=== PATIENT | male | born 1940 | race Caucasian/White ===

== ENCOUNTER 2019-11-07 01:31 | Emergency (ER) | payer OTHER, MEDICARE ==
[~2019-11-07] VITALS: Ht 175.3 cm; Wt 108.9 kg
[~2019-11-07 01:31] MED LIST: ACET325 PO; AMOCLA875 PO; ANACIN; BENZ100A PO; CHOLESTEROL MED; CLIN150 PO; ERGO400 PO; FURO20 PO; FURO40 PO; HYDACE5 PO; HYDR1TAB94 PO; K-Dur20 MEQ PO; LOVENOX; MITIGARE0.6 MG PO; OMEP40CA12 PO; POTA20PAC PO; POTCHL10ER PO; POTCHL20ER PO; PRAV20 PO; TRIHYD PO; VITAMIN D5000 UNIT PO; WARF10; WARF10 PO; WARF5 PO; WARF7.5 PO
[2019-11-18] MEDS ORDERED: WARF5 PO (22:40)
[2019-11-18] MEDS ORDERED: Micro-K10 MEQ PO (22:40)
[2019-11-18] MEDS ORDERED: FURO40 PO (22:41)
[2019-11-25] MEDS ORDERED: AMOCLA875 PO (11:54)
[2019-11-25] MEDS ORDERED: ENOX80I SC (11:54)
[2019-11-25] MEDS ORDERED: PROBIOTIC1 EA10 PO (11:54)
== END 2019-11-07 02:49 | disposition home or self-care (01) ==
LOC: ER 01:31
DX: S50.01XA Contusion of right elbow, initial encounter (principal); F17.220 Nicotine dependence, chewing tobacco, uncomplicated; Z79.01 Long term (current) use of anticoagulants; Z79.899 Other long term (current) drug therapy; X58.XXXA Exposure to other specified factors, initial encounter
CPT/HCPCS: 73080; 99284-25

== ENCOUNTER 2021-01-07 14:41 | Emergency (ER) | payer MEDICARE ==
[~2021-01-07 14:41] MED LIST changes: +ENOX80I SC; +FURO80 PO; +KLOR-CON M1010 MEQ PO; +Micro-K10 MEQ PO; +PROBIOTIC1 EA10 PO; +TAMS.4ER PO
== END 2021-01-07 14:55 | disposition left against medical advice (07) ==
LOC: ER 14:41
DX: Z53.21 Procedure and treatment not carried out due to patient leaving prior to being seen by health care provider (principal)

== ENCOUNTER 2022-03-06 14:36 | Emergency (ER) | payer MEDICARE ==
[~2022-03-06] VITALS: Ht 175.3 cm; Wt 106.6 kg
[2022-03-06 15:53] LABS: BASOPHILS ABSOLUTE AUTO 0.03 K/mm3 (0.00-0.23); BASOPHILS PERCENT AUTO 1 % (0-2); EOSINOPHILS PERCENT AUTO 2 % (0-6); Hematocrit 35.4 % (37.0-53.0); Hemoglobin 11.3 g/dL (13.5-17.5); IMMATURE GRAN ABSOLUTE AUTO 0.02 K/mm3 (0.00-0.10); IMMATURE GRAN PERCENT AUTO 0 % (0-1); LYMPHOCYTES PERCENT AUTO 25 % (21-46); MONOCYTES ABSOLUTE AUTO 0.43 K/mm3 (0.16-1.47); MONOCYTES PERCENT AUTO 8 % (4-13); Mean Corpuscular HGB 28.4 pg (26.0-34.0); Mean Corpuscular HGB Conc 31.9 g/dL (31.5-36.5); Mean Corpuscular Volume 89 fL (80-100); Mean Platelet Volume 9.2 fL (9.1-12.4); NEUTROPHILS ABSOLUTE AUTO 3.64 K/mm3 (1.96-9.15); NEUTROPHILS PERCENT AUTO 65 % (41-73); Platelet Count 353 K/mm3 (150-400); RDW Coefficient Variation 15.3 % (11.7-14.2); RDW Standard Deviation 50.2 fL (35.1-46.3); Red Blood Cell Count 3.98 M/mm3 (4.30-5.90); White Blood Cell Count 5.62 K/mm3 (4.00-11.30)
[2022-03-06 16:25] LABS: Albumin, Blood 2.3 g/dL (3.4-5.0); Albumin/Globulin Ratio 0.4 (0.8-1.8); Bilirubin, Total 0.4 mg/dL (0.1-1.0); Bun/Creatinine Ratio 18.7 (12.0-20.0); Calcium, Blood 9.3 mg/dL (8.5-10.1); Creatinine, Blood 0.8 mg/dL (0.60-1.20); Globulin, Blood 6.3 g/dL (2.2-4.0); Potassium, Blood 3.6 mmol/L (3.5-5.5); Total Protein, Blood 8.6 g/dL (6.4-8.2)
[2022-03-06 18:32] LABS: International Normalized Ratio 2.42
[2022-03-06] MEDS ORDERED: CEFD300 PO (20:27)
== END 2022-03-06 20:52 | disposition home or self-care (01) ==
LOC: ER 14:36
PROVIDERS: Emergency Medicine; Physician Assistant
DX: L03.115 Cellulitis of right lower limb (principal); I87.8 Other specified disorders of veins; Z79.899 Other long term (current) drug therapy; Z79.01 Long term (current) use of anticoagulants
CPT/HCPCS: 36415; 73701; 80053; 83880; 85025; 85610; 87070; 87075; 87147; 87205; 93005; 93010; Q9967

== ENCOUNTER 2022-03-19 09:09 | Inpatient (IN) | payer MEDICARE ==
[~2022-03-19] VITALS: Ht 172.7 cm; Wt 100.0 kg
[~2022-03-19 09:09] MED LIST changes: +CEFD300 PO; -FURO80 PO
[2022-03-19 10:01] LABS: BASOPHILS ABSOLUTE AUTO 0.04 K/mm3 (0.00-0.23); BASOPHILS PERCENT AUTO 1 % (0-2); EOSINOPHILS ABSOLUTE AUTO 0.05 K/mm3 (0.00-0.68); EOSINOPHILS PERCENT AUTO 1 % (0-6); Hematocrit 28.9 % (37.0-53.0); Hemoglobin 9.3 g/dL (13.5-17.5); IMMATURE GRAN ABSOLUTE AUTO 0.03 K/mm3 (0.00-0.10); IMMATURE GRAN PERCENT AUTO 1 % (0-1); LYMPHOCYTES ABSOLUTE AUTO 1.55 K/mm3 (0.84-5.20); LYMPHOCYTES PERCENT AUTO 25 % (21-46); MONOCYTES ABSOLUTE AUTO 0.57 K/mm3 (0.16-1.47); MONOCYTES PERCENT AUTO 9 % (4-13); Mean Corpuscular HGB 28.2 pg (26.0-34.0); Mean Corpuscular HGB Conc 32.2 g/dL (31.5-36.5); Mean Corpuscular Volume 88 fL (80-100); Mean Platelet Volume 9.8 fL (9.1-12.4); NEUTROPHILS ABSOLUTE AUTO 3.91 K/mm3 (1.96-9.15); NEUTROPHILS PERCENT AUTO 64 % (41-73); Platelet Count 355 K/mm3 (150-400); RDW Coefficient Variation 15.1 % (11.7-14.2); RDW Standard Deviation 48.7 fL (35.1-46.3); White Blood Cell Count 6.15 K/mm3 (4.00-11.30)
[2022-03-19 10:17] LABS: Magnesium, Blood 1.6 mg/dL (1.6-2.4)
[2022-03-19 11:28] LABS: Albumin, Blood 1.6 g/dL (3.4-5.0); Albumin/Globulin Ratio 0.2 (0.8-1.8); Bilirubin, Total 0.9 mg/dL (0.1-1.0); Bun/Creatinine Ratio 19.8 (12.0-20.0); Calcium, Blood 8.7 mg/dL (8.5-10.1); Creatinine, Blood 0.81 mg/dL (0.60-1.20); Globulin, Blood 6.8 g/dL (2.2-4.0); Potassium, Blood 3.2 mmol/L (3.5-5.5); Total Protein, Blood 8.4 g/dL (6.4-8.2)
[2022-03-19 12:11] LABS: Prothrombin Time Results 42.8 Sec (9.7-11.5)
[2022-03-19 12:14] LABS: International Normalized Ratio 4.5
--- NOTE | 2022-03-19 18:45 | NUR ---
END OF SHIFT SUMMARY: PATIENT ADMITTED THIS AFTERNOON. PATIENT REPORTS THAT HE IS UNABLE TO WALK AT THIS TIME RELATED TO HIS RLE. PATIENT DENIES PAIN, HOWEVER HE YELLS OUT WITH MOVEMENT OF HIS RIGHT LEG. PATIENT REPORTS THAT HE DOESN'T LIKE TO TAKE PAIN MEDICATIONS AND REFUSED ANY INTERVENTIONS FOR PAIN. PATIENT ARRIVED TO THE UNIT IN CLOTHING SOILED FROM THE WOUND AND LACK OF WASHING. WOUND PICTURES ARE IN THE CHARGE. DR. FONG ROUNDED ON THE PATIENT AND GAVE NEW ORDERS. WOUND DRESSED PER ORDERS ( ALLOWED FOR RN) UNTIL HOTEL OR MOTEL RECEPTIONIST CAN COMPLETE THE ASSESSMENT AND DRESSING TOMORROW. PATIENT HAS A MODERATE APPETITE. PATIENT REPORTS THAT HE HAS HAD A LACK OF APPETITE AND HAS BEEN LOSING WEIGHT A RESULT OF THAT.
[2022-03-20 04:40] LABS: Hematocrit 25.5 % (37.0-53.0); Mean Corpuscular HGB 27.9 pg (26.0-34.0); Mean Corpuscular HGB Conc 31.4 g/dL (31.5-36.5); Mean Corpuscular Volume 89 fL (80-100); Mean Platelet Volume 9.4 fL (9.1-12.4); Platelet Count 323 K/mm3 (150-400); RDW Standard Deviation 48.4 fL (35.1-46.3); Red Blood Cell Count 2.87 M/mm3 (4.30-5.90); White Blood Cell Count 6.65 K/mm3 (4.00-11.30)
[2022-03-20 04:57] LABS: International Normalized Ratio 3.12; Prothrombin Time Results 30.4 Sec (9.7-11.5)
[2022-03-20 04:58] LABS: Bun/Creatinine Ratio 18.4 (12.0-20.0); Calcium, Blood 8.1 mg/dL (8.5-10.1); Creatinine, Blood 0.81 mg/dL (0.60-1.20); Potassium, Blood 3.3 mmol/L (3.5-5.5)
--- NOTE | 2022-03-20 05:01 | NUR ---
PT A&OX 4, IV ABX INFUSED T/O NIGHT WITH NS @125, PT DENIED PAIN IN THE RIGHT LEG AT THIS TIME, PT WOUND TO RIGHT FOOT WRAPPED WITH KERLIX- WOUND CONSULT ORDERED- MRI ORDERED TO DETERMINE IF PT NEEDS AMPUTATION
[2022-03-20 16:20] LABS: Percent Saturation 12.8 % (20.0-50.0)
--- NOTE | 2022-03-20 16:28 | NUR ---
DAYSHIFT SUMMARY No acute changes to patient status this shift. Patient resting comfortably in bed, uses urinal in bed & calls appropriately. Dressing applied to right foot, dressing is CDI. Patient had MRI done today. Vitals stable. Will continue plan of care.
[2022-03-20 22:55] LABS: Vancomycin, Random 16.5 ug/mL
--- NOTE | 2022-03-21 05:54 | NUR ---
Shift Summary PT AOx4, currently on bedrest due to the state of his right foot. 4+ edema on R and L LE, significantly worse on R side. X-ray was done tonight, awaiting results. Spoke to Dr. Stroud who ordered NPO status, vancomyacin to be restarted, and Zosyn to be restarted as they were before. Plan is to have ortho consult this AM and possibly perform BKA today. PT is agreeable to this possibility. No C/O of pain or nausea, VSS, no acute events, pleasant and cooperative with care.
[2022-03-21 08:48] LABS: BASOPHILS ABSOLUTE AUTO 0.03 K/mm3 (0.00-0.23); BASOPHILS PERCENT AUTO 1 % (0-2); EOSINOPHILS ABSOLUTE AUTO 0.09 K/mm3 (0.00-0.68); EOSINOPHILS PERCENT AUTO 1 % (0-6); Hematocrit 26.9 % (37.0-53.0); Hemoglobin 8.2 g/dL (13.5-17.5); IMMATURE GRAN ABSOLUTE AUTO 0.04 K/mm3 (0.00-0.10); IMMATURE GRAN PERCENT AUTO 1 % (0-1); LYMPHOCYTES ABSOLUTE AUTO 1.25 K/mm3 (0.84-5.20); LYMPHOCYTES PERCENT AUTO 19 % (21-46); MONOCYTES ABSOLUTE AUTO 0.54 K/mm3 (0.16-1.47); MONOCYTES PERCENT AUTO 8 % (4-13); Mean Corpuscular HGB 27.3 pg (26.0-34.0); Mean Corpuscular HGB Conc 30.5 g/dL (31.5-36.5); Mean Corpuscular Volume 90 fL (80-100); Mean Platelet Volume 8.8 fL (9.1-12.4); NEUTROPHILS PERCENT AUTO 70 % (41-73); Platelet Count 346 K/mm3 (150-400); RDW Coefficient Variation 15.1 % (11.7-14.2); RDW Standard Deviation 49.1 fL (35.1-46.3); White Blood Cell Count 6.55 K/mm3 (4.00-11.30)
[2022-03-21 09:00] LABS: International Normalized Ratio 1.64; Prothrombin Time Results 16.7 Sec (9.7-11.5)
[2022-03-21 10:29] LABS: Influenza A, PCR NEGATIVE (NEGATIVE); Influenza B, PCR NEGATIVE (NEGATIVE); Resp Syncytial Virus, PCR NEGATIVE (NEGATIVE); SARS-Cov-2 (COVID-19) PCR, MMC NEGATIVE (NEGATIVE)
--- NOTE | 2022-03-21 18:29 | NUR ---
SHIFT SUMMARY: NO ACUTE EVENTS. DENIES PAIN WHILE RLE IS AT REST, BUT CRIES OUT WHEN EXTREMITY IS MOVED AT ALL, RECOVERS QUICKLY. A&O X 4, UNCOOPERATIVE THIS MORNING BUT WAS MORE COOPERATIVE THIS AFTERNOON. LBM 03/19; STATED NORMAL FOR HIM TO GO 4-5 DAYS WITHOUT. DRESSING CHANGED ON R ANKLE PER ORDERS. APPETITE OK. VERBALIZED UNDERSTANDING OF PLAN FOR TOMORROW: NPO AFTER MN, SURGERY FOR R BKA OR AKA. HAD SEVERAL VISITORS TODAY.
[2022-03-22 04:27] LABS: Vancomycin, Trough 11.6 ug/mL (5.0-10.0)
[2022-03-22 05:19] LABS: International Normalized Ratio 1.38; Prothrombin Time Results 14.2 Sec (9.7-11.5)
--- NOTE | 2022-03-22 06:45 | NUR ---
Shift Summary Pt awaiting surgery today, has been NPO since midnight. Rcving NPO ABX and IV NS to minimize infection until surgery. AOx4, irritable when awoken and sometimes yells at staff. Expected BKA or Above KA today. INR was 1.6 yesterday, surgeon wanted 1.4 for surgery, this AM it is 1.38. Pre-op and covid test were done by day nurse yesterday and should be in PT's chart. VSS, pt cooperative with care.
--- NOTE | 2022-03-22 17:26 | NUR ---
SHIFT SUMMARY PT ALERT AND ORIENTED, CALLS APPROPRIATELY. PT DOWN TO OR TODAY FOR R BKA. PT RETURNED TO UNIT WITH DRESSING CDI. PAIN IS CURRENTLY TOLERABLE. IV FLUIDS INFUSING. PT ON RA, SPO2 > 92%. WILL CONTINUE TO MONITOR. CALL LIGHT WITHIN REACH.
[2022-03-22 22:36] LABS: Creatinine, Blood 0.65 mg/dL (0.60-1.20); Vancomycin, Trough 13.4 ug/mL (5.0-10.0)
--- NOTE | 2022-03-23 05:13 | NUR ---
SUMMARY: PATIENT DID WELL OVERNIGHT. VSS. NO ACUTE EVENTS. IV HYDRATION RUNNING. IV ABX GIVEN. PATIENT STATES HIS PAIN IS TOLERABLE, MEDS OFFERED FREQUENTLY PATIENT STATES HE DOES NOT BELIEVE IN TAKING PAIN MEDS. BLE WITH EDEMA NOTED. R BKA SURGICAL DRESSING CLEAN DRY AND INTACT. NO SIGNS OF DRAINAGE OR BLEEDING.
--- NOTE | 2022-03-23 17:15 | NUR ---
NO ACUTE CHANGES DURING SHIFT. PT ALERT AND ORIENTED, CALLS APPROPRIATELY. PT FLUIDS D/C'D, SALINE LOCKED. CONTINUES IV ABX. PT C/O MINOR PAIN TO RBKA, BUT REQUESTS NO PAIN MEDS AT THIS POINT. DRESSING CDI. WILL CONTINUE TO MONITOR. CALL LIGHT WITHIN REACH.
--- NOTE | 2022-03-24 05:31 | NUR ---
SUMMARY: PATIENT WAS NAUSEOUS THROUGHOUT THE NIGHT AND HAD A FEW EPISODES OF EMESIS. IV ZOFRAN GIVEN. IV ABX GIVEN. PATIENT REFUSING PAIN MEDICATIONS. PATIENT R BKA SURGERY SITE DRESSING IN TACT. NO SIGNS OF BLEEDING. PATIENT ALERT AND ORIENTED X4. VSS. JUST STATES HE FEELS SICK TO HIS STOMACH. BED BATH GIVEN THIS MORNING AND LINENS CHANGED. PATIENT AGREED TO TAKE TYLENOL THIS AM. CRUSHED PILLS IN APPLESAUCE PATIENT STATED HIS STOMACH WAS UPSET.
--- NOTE | 2022-03-24 06:34 | NUR ---
AT 0628 THIS MORNING PATIENT REPORTED HE HAS CHEST PAIN. PATIENT HAS HAD A FEW EPISODES OF EMISIS OVERNIGHT. NOTIFIED DR. HINDS. HE STATED TO GIVE 30ML OF MAALOX THEN REASSESS AND NOTIFY HIM IF CHEST PAIN PERSISTS AND HE WILL GIVE NEW ORDERS.
[2022-03-24 10:23] LABS: Vancomycin, Trough 17.6 ug/mL (5.0-10.0)
--- NOTE | 2022-03-24 17:14 | NUR ---
SHIFT SUMMARY; CAME TO ROOM AND CHANGED DRESSING ON RIGHT LEG AKA. NO DRAINAGE NOTE. AREA IS CLEAN DRY AND INTACT. NO REDNESS OR SWELLING. BYRON TOLERATED DRESSING CHANGE WELL. BYRON DID WORK WITH OT TODAY AND SHE WOULD LIKE PATINT TO SIT ON EDGE OF BED AT DINNER IF AT ALL POSSIBLE. DINING SERVICE WORKER IS WORKING ON PLANS FOR PAITENT AFTER SNF AND IS ABLE TO FIGURE OUT THAT BYRON HAS FRIENDS (TRINH AND HER ) WHO WILL BUYING A HOUSE AND TAKING PAITENT TO LIVE WITH THEM. IF HOUSE IS NOT PURCHASED PRIOR TO DISCHARGE FROM SNF BYRON CAN LIVE WITH THEM AT THERE CURRENT HOUSE. PATIENT IS AO X 4 TODAY. VERY TALKATIVE AND CONFRONTATIONAL AT TIMES. HE TAKES HIS PILLS WHOLE WITH WATER AND USES CALL LIGHT INTERMIMITTENTLY TO MAKE HIS NEEDS KNOWN. IS ALSO KNOWN TO YELL OUT. HIS VITAL SIGNS ARE WNL AND HIS LUNGS ARE DIM THROUGHOUT. LUIS ATSHANI IS ENCOURAGED TO TAKE DEEP BREATHS.
--- NOTE | 2022-03-25 04:25 | NUR ---
SUMMARY: PATIENT DID WELL OVERNIGHT. NO EPISODES OF NAUSEA OR VOMITTING. IV ABX GIVEN. PATIENT TURNS WELL IN BED. PATIENT VERBALIZED THINGS HE LEARNED IN THERAPY AND IS LOOKING FORWARD TO GETTING MORE THERAPY TOMORROW. DRESSING IN R BKA CLEAN DRY AND INTACT. NO ACUTE EVENTS. VSS. PATIENT AOX4, COMPLIANT WITH CARE. DENIES PAIN.
--- NOTE | 2022-03-25 18:20 | NUR ---
SHIFT SUMMARY; PATIENT WORKED WITH PT OT TODAY. SLEPT MOST OF THE REST OF DAY AFTER HE SEEMED VERY TIRED. HE HAS PLEASANT AFFECT WHEN AWAKE AND IS COOPERATIVE WITH CARE. CONSENTED TO A BED BATH AND ASSISTED IN TURNS. HIS VITAL SIGNS ARE WNL. NO SIGNS OF DRAINAGE FROM HIS SURGICAL WOUND ON RIGHT LEG AKA. PATIENT DENIES ANY PAIN OR DISCOMFORT. DC PLAN IS TO DISCHARGE TO SNF OR HOME WITH TRINH HIS FRIEND WHO IS A RETIRED NURSE WHO HAS AGREED TO TAKE CARE OF HIM.
--- NOTE | 2022-03-26 05:16 | NUR ---
SHIFT SUMMARY - NO ACUTE CHANGES THIS SHIFT. PT DENIED ANY COMPLAINTS OF PAIN OR DISCOMFORT. PT HAS BEEN SLEEPING THROUGHOUT MOST OF THE NIGHT. PT HAS A PAS STOCKING ON TO LEFT LE. DRESSING TO R BKA CD&I. PO FLUIDS AT BEDSIDE. CALL LIGHT WITHIN REACH. BED IN LOW POSITION. WILL CONTINUE TO MONITOR UNTIL AM SHIFT CHANGE.
--- NOTE | 2022-03-26 18:29 | NUR ---
SUMMARY- PT ORIENTED AND JOVIAL. MOSTLY BEDREST, PT/OT WORKING WITH PT SITTING AT THE EDGE OF THE BED. PT STAES L STUMP PAIN A 3 MOST OF THE TIME BUT DECLINED ULTRAM. VSS, TACHY IN 100'S. TOLERATING FOOD AND FLUIDS. HAD 2 SOFT BROWN BM'S TODAY. VERY SOCIAL, TALKING ON THE PHONE A LOT OF THE DAY. RLE STUMP HAS SOFT SOCK COVERING DRESSING, NOTES STATING DR WESTBROOK CHANGED DRESSING 03/24. PT USES CALL LIGHT TO MAKE NEEDS KNOWN. WILL REPORT TO LYNDA CROWLEY.
--- NOTE | 2022-03-27 04:44 | NUR ---
SHIFT SUMMARY; NO ACUTE MEDICAL CHANGES THROUGHOUT THE NIGHT. THE PT RESTED IN BED FOR THE DURATION OF THE NIGHT. THE PT REFUSED PAIN MEDS, STATING THAT HE DOES NOT NEED THEM AND HE HAS NEVER HAD TO TAKE PAIN MEDS BEFORE AND HES NOT GOING TO START NOW. PT DENIES ANY SHORTNESS OF BREATHE OR PAIN CURRENTLY. CURRENTLY THE PT IS RESTING IN THE BED WITH THE BED IN THE LOWETS POSITION AND THE CALL LIGHT IN THE PTS LAP.
[2022-03-27] MEDS ORDERED: Acetaminophen325 M1 PO (15:07)
[2022-03-27] MEDS ORDERED: TAMS.4ER PO (15:07)
[2022-03-27] MEDS ORDERED: XARELTO20 MG PO (15:07)
[2022-03-27 15:29] LABS: SARS-Cov-2 (COVID-19) PCR, MMC NEGATIVE (NEGATIVE)
--- NOTE | 2022-03-27 18:21 | NUR ---
PT DISCHARGED TO [facility] 1730 VIA WHEELCHAIR TRANSPORT. CALLED REPORT TO [facility] 1735. BELONGINGS SENT WITH PT.
== END 2022-03-27 17:27 | DRG 240 ==
LOC: ER 09:09 → MEDS 13:42
PROVIDERS: Emergency Medicine; Internal Medicine; Nurse Practitioner Acute Care; Orthopaedic Surgery; Podiatrist; ADMIT Internal Medicine
PROC: 0Y6H0Z1 Detachment at Right Lower Leg, High, Open Approach (ICD-10-PCS; principal; 2022-03-22 12:00)
DX: I87.2 Venous insufficiency (chronic) (peripheral) (principal); D62 Acute posthemorrhagic anemia; M86.8X7 Other osteomyelitis, ankle and foot; M00.871 Arthritis due to other bacteria, right ankle and foot; L97.311 Non-pressure chronic ulcer of right ankle limited to breakdown of skin; I83.013 Varicose veins of right lower extremity with ulcer of ankle; I89.0 Lymphedema, not elsewhere classified; I48.0 Paroxysmal atrial fibrillation; I73.9 Peripheral vascular disease, unspecified; Z66 Do not resuscitate; N40.0 Benign prostatic hyperplasia without lower urinary tract symptoms; D63.8 Anemia in other chronic diseases classified elsewhere; E87.6 Hypokalemia; D50.9 Iron deficiency anemia, unspecified; F12.10 Cannabis abuse, uncomplicated; Z20.822 Contact with and (suspected) exposure to COVID-19; I10 Essential (primary) hypertension; R79.1 Abnormal coagulation profile; Z74.09 Other reduced mobility; Z86.718 Personal history of other venous thrombosis and embolism; Z79.01 Long term (current) use of anticoagulants; Z86.711 Personal history of pulmonary embolism; Z79.899 Other long term (current) drug therapy; Z79.2 Long term (current) use of antibiotics; Z79.891 Long term (current) use of opiate analgesic; Z98.890 Other specified postprocedural states
CPT/HCPCS: 0241U; 36415; 73552; 73590; 73720; 73721; 80048; 80053; 80202; 82565; 82728; 83540; 83550; 83605; 83735; 83880; 84484; 85025; 85027; 85610; 85651; 86141; 87040; 88307; 88311; 93005; 93010; 96365; 96366; 96367; 97110; 97129; 97162; 97166; 97530; 97530-CQ; 99284-25; A9270; A9579; J1100; J2405; J2543; J2704; J3010; J3370; J7030; J7050; U0004

== ENCOUNTER 2022-05-18 08:37 | Inpatient (IN) | payer MEDICARE ==
[~2022-05-18] VITALS: Ht 182.9 cm; Wt 95.5 kg
[~2022-05-18 08:37] MED LIST changes: +Acetaminophen325 M1 PO; +XARELTO20 MG PO
[2022-05-18 09:35] LABS: BASOPHILS ABSOLUTE AUTO 0.05 K/mm3 (0.00-0.23); BASOPHILS PERCENT AUTO 1 % (0-2); EOSINOPHILS ABSOLUTE AUTO 0.06 K/mm3 (0.00-0.68); EOSINOPHILS PERCENT AUTO 1 % (0-6); Hematocrit 30.6 % (37.0-53.0); Hemoglobin 9.8 g/dL (13.5-17.5); IMMATURE GRAN ABSOLUTE AUTO 0.04 K/mm3 (0.00-0.10); IMMATURE GRAN PERCENT AUTO 0 % (0-1); LYMPHOCYTES ABSOLUTE AUTO 1.69 K/mm3 (0.84-5.20); LYMPHOCYTES PERCENT AUTO 18 % (21-46); MONOCYTES ABSOLUTE AUTO 0.96 K/mm3 (0.16-1.47); MONOCYTES PERCENT AUTO 10 % (4-13); Mean Corpuscular HGB 28.2 pg (26.0-34.0); Mean Corpuscular Volume 88 fL (80-100); Mean Platelet Volume 9.3 fL (9.1-12.4); NEUTROPHILS ABSOLUTE AUTO 6.83 K/mm3 (1.96-9.15); NEUTROPHILS PERCENT AUTO 71 % (41-73); Platelet Count 240 K/mm3 (150-400); RDW Coefficient Variation 16.3 % (11.7-14.2); Red Blood Cell Count 3.48 M/mm3 (4.30-5.90); White Blood Cell Count 9.63 K/mm3 (4.00-11.30)
[2022-05-18 09:58] LABS: Albumin, Blood 2.2 g/dL (3.4-5.0); Albumin/Globulin Ratio 0.4 (0.8-1.8); Bilirubin, Total 0.8 mg/dL (0.1-1.0); Bun/Creatinine Ratio 24.9 (12.0-20.0); Calcium, Blood 8.8 mg/dL (8.5-10.1); Creatinine, Blood 0.84 mg/dL (0.60-1.20); Globulin, Blood 4.9 g/dL (2.2-4.0); Total Protein, Blood 7.1 g/dL (6.4-8.2)
[2022-05-18 14:03] LABS: International Normalized Ratio 1.19; Prothrombin Time Results 12.4 Sec (9.7-11.5)
[2022-05-18 14:26] LABS: Influenza A, PCR NEGATIVE (NEGATIVE); Influenza B, PCR NEGATIVE (NEGATIVE); Resp Syncytial Virus, PCR NEGATIVE (NEGATIVE); SARS-Cov-2 (COVID-19) PCR, MMC NEGATIVE (NEGATIVE)
--- NOTE | 2022-05-19 03:47 | NUR ---
SHIFT UNREMARKABLE. PATIENT TOOK 2100 MEDICATIONS WITHOUT DIFFICULTY AND SLEPT THROUGH REMAINDER OF SHIFT. CALL LIGHT LEFT WITHIN REACH.
[2022-05-19 06:02] LABS: BASOPHILS ABSOLUTE AUTO 0.04 K/mm3 (0.00-0.23); BASOPHILS PERCENT AUTO 1 % (0-2); EOSINOPHILS ABSOLUTE AUTO 0.12 K/mm3 (0.00-0.68); EOSINOPHILS PERCENT AUTO 2 % (0-6); Hematocrit 29.1 % (37.0-53.0); Hemoglobin 9.1 g/dL (13.5-17.5); IMMATURE GRAN ABSOLUTE AUTO 0.02 K/mm3 (0.00-0.10); IMMATURE GRAN PERCENT AUTO 0 % (0-1); LYMPHOCYTES ABSOLUTE AUTO 1.85 K/mm3 (0.84-5.20); LYMPHOCYTES PERCENT AUTO 28 % (21-46); MONOCYTES PERCENT AUTO 9 % (4-13); Mean Corpuscular HGB 27.6 pg (26.0-34.0); Mean Corpuscular HGB Conc 31.3 g/dL (31.5-36.5); Mean Corpuscular Volume 88 fL (80-100); Mean Platelet Volume 10.1 fL (9.1-12.4); NEUTROPHILS ABSOLUTE AUTO 3.97 K/mm3 (1.96-9.15); NEUTROPHILS PERCENT AUTO 60 % (41-73); Platelet Count 242 K/mm3 (150-400); RDW Coefficient Variation 16.6 % (11.7-14.2); RDW Standard Deviation 54.3 fL (35.1-46.3)
[2022-05-19 06:50] LABS: Albumin, Blood 1.9 g/dL (3.4-5.0); Albumin/Globulin Ratio 0.4 (0.8-1.8); Bilirubin, Total 0.4 mg/dL (0.1-1.0); Bun/Creatinine Ratio 23.7 (12.0-20.0); Calcium, Blood 8.6 mg/dL (8.5-10.1); Creatinine, Blood 0.72 mg/dL (0.60-1.20); Globulin, Blood 4.4 g/dL (2.2-4.0); Potassium, Blood 4.2 mmol/L (3.5-5.5); Total Protein, Blood 6.3 g/dL (6.4-8.2)
--- NOTE | 2022-05-19 15:59 | NUR ---
SHIFT SUMMARY; PATIENT WAS NPO FOR SURGERY I AND D SINCE MIDNIGHT. AT 1600 TO ROOM. SURGERY IS TOO FULL AND WILL DO HIS SURGERY HOPEFULLY TOMORROW. SO NPO AFTER MIDNIGHT TONIGHT. WILL PASS ON IN REPORT TO NOC SHIFT AT SHIFT REPORT. PATIENT SLEEPS MOST OF DAY. DENIES ANY PAIN OR DISCOMFORT TODAY. HIS AO X 4. HIS LUNGS ARE CLEAR THROUGHOUT BUT A LITTLE DIM IN THE BASES. PATINET IS ENCOURAGED TO COUGH AND DEEP BREATH.
--- NOTE | 2022-05-20 05:11 | NUR ---
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 DNR. NO ACUTE CHANGES THIS SHIFT. PT HAS BEEN NPO SINCE MIDNIGHT TO PREPARE FOR SURGERY TODAY. HE HAS HAD NO C/O PAIN OR DISCOMFORT THIS SHIFT. HE HAS SLEPT FOR MOST OF THE SHIFT. HE IS PLEASANT AND COOPERATIVE WITH CARE.
[2022-05-20 05:14] LABS: BASOPHILS ABSOLUTE AUTO 0.06 K/mm3 (0.00-0.23); BASOPHILS PERCENT AUTO 1 % (0-2); EOSINOPHILS ABSOLUTE AUTO 0.19 K/mm3 (0.00-0.68); EOSINOPHILS PERCENT AUTO 4 % (0-6); Hematocrit 30.4 % (37.0-53.0); Hemoglobin 9.5 g/dL (13.5-17.5); IMMATURE GRAN ABSOLUTE AUTO 0.02 K/mm3 (0.00-0.10); IMMATURE GRAN PERCENT AUTO 0 % (0-1); LYMPHOCYTES ABSOLUTE AUTO 1.69 K/mm3 (0.84-5.20); LYMPHOCYTES PERCENT AUTO 34 % (21-46); MONOCYTES ABSOLUTE AUTO 0.51 K/mm3 (0.16-1.47); MONOCYTES PERCENT AUTO 10 % (4-13); Mean Corpuscular HGB 27.8 pg (26.0-34.0); Mean Corpuscular HGB Conc 31.3 g/dL (31.5-36.5); Mean Corpuscular Volume 89 fL (80-100); Mean Platelet Volume 9.4 fL (9.1-12.4); NEUTROPHILS PERCENT AUTO 50 % (41-73); Platelet Count 276 K/mm3 (150-400); RDW Coefficient Variation 16.4 % (11.7-14.2); Red Blood Cell Count 3.42 M/mm3 (4.30-5.90); White Blood Cell Count 4.97 K/mm3 (4.00-11.30)
[2022-05-20 08:46] LABS: Albumin, Blood 1.9 g/dL (3.4-5.0); Albumin/Globulin Ratio 0.4 (0.8-1.8); Bilirubin, Total 0.3 mg/dL (0.1-1.0); Bun/Creatinine Ratio 25.5 (12.0-20.0); Calcium, Blood 9.2 mg/dL (8.5-10.1); Creatinine, Blood 0.75 mg/dL (0.60-1.20); Potassium, Blood 4.4 mmol/L (3.5-5.5); Total Protein, Blood 6.9 g/dL (6.4-8.2)
[2022-05-20 14:50] LABS: Vancomycin, Trough 12.7 ug/mL (5.0-10.0)
--- NOTE | 2022-05-20 15:09 | NUR ---
05/20/22 1509 Cammy Fitzgerald NO PREOP ANTIBIOTICS ORDERED PER PATIENT IS ON SCHEDULED VANCO. PATIENT RECEIVED VANCO PRIOR TO ARRIVING IN THE OR.
--- NOTE | 2022-05-20 17:17 | NUR ---
SHIFT SUMMARY- PT VSS. APPETITE GOOD AFTER PROCEDURE. CHANGED WOUND BANDAGE PER DR REQUEST. PT IN PROCEDURE PART OF SHIFT. WOUND VAC INTACT. BANDGAE C/D/I. PAIN C/O MINIMAL. WILL CONTINUE TO MONITOR. CALL LIGHT IN REACH. RAILS UP FOR SAFETY.
--- NOTE | 2022-05-21 04:39 | NUR ---
SHIFT SUMMARY ADMITTED FOR INFECTION OF RT BKA STUMP. DNR CODE. CONTACT PRECAUTIONS FOR MRSA IN WOUND. I&D PERFORMED ON PREVIOUS SHIFT. WOUND VAC IN PLACE. DR. BOWMAN IS CONSULT. ON RA. FROM [facility]. IV ANTIB RX ARE SCHEDULED. ON REGULAR DIET. HE HAS NOT GOTTEN OUT OF BED THIS SHIFT.
[2022-05-21 05:44] LABS: BASOPHILS ABSOLUTE AUTO 0.01 K/mm3 (0.00-0.23); BASOPHILS PERCENT AUTO 0 % (0-2); EOSINOPHILS PERCENT AUTO 0 % (0-6); Hematocrit 31.6 % (37.0-53.0); IMMATURE GRAN ABSOLUTE AUTO 0.02 K/mm3 (0.00-0.10); IMMATURE GRAN PERCENT AUTO 0 % (0-1); LYMPHOCYTES ABSOLUTE AUTO 1.25 K/mm3 (0.84-5.20); LYMPHOCYTES PERCENT AUTO 27 % (21-46); MONOCYTES ABSOLUTE AUTO 0.29 K/mm3 (0.16-1.47); MONOCYTES PERCENT AUTO 6 % (4-13); Mean Corpuscular HGB Conc 31.6 g/dL (31.5-36.5); Mean Corpuscular Volume 89 fL (80-100); Mean Platelet Volume 9.2 fL (9.1-12.4); NEUTROPHILS PERCENT AUTO 66 % (41-73); Platelet Count 290 K/mm3 (150-400); RDW Coefficient Variation 15.9 % (11.7-14.2); RDW Standard Deviation 51.7 fL (35.1-46.3); Red Blood Cell Count 3.57 M/mm3 (4.30-5.90); White Blood Cell Count 4.57 K/mm3 (4.00-11.30)
[2022-05-21 06:16] LABS: Calcium, Blood 9.4 mg/dL (8.5-10.1); Creatinine, Blood 0.75 mg/dL (0.60-1.20); Potassium, Blood 4.9 mmol/L (3.5-5.5)
--- NOTE | 2022-05-21 14:47 | NUR ---
WOUND CARE WOUND VAC DRESSING CHANGED. TWO PIECES OF BLACK FOAM REMOVED, WOUND WASHED WITH NS, WIINDOW PANED WITH TRANSPARENT FILM, ONE PIECE BLACK FOAM REAPPLIED. VAC SET TO CONTINUOUS 120 MMHG. PT TOLERATED WELL. WOUND PHOTO AND ASSESSMENT IN HARD CHART, ORDERS IN [facility]
--- NOTE | 2022-05-21 18:01 | NUR ---
SHIFT SUMMARY- PT BEDFAST, PT WORKED WITH JOAN SLICKDEYSI AT SIDE OF BED. USES CALL LIGHT APROPRIATELY. FRIEND AT BEDSIDE, CONCERNS ABOUT REHAB PLACEMENT, WILL PASS ON INFO TO NIGHT NURSE. APPETITE GOOD. ON RA. IV PATENT. WILL CONTINUE TO MONITOR, CALL LIGHT IN REACH.
--- NOTE | 2022-05-22 04:38 | NUR ---
SHIFT SUMMARY ADMITTED FOR POST OP INFECTION OF RIGHT BKA. DNR CODE. CONTACT PRECAUTIONS FOR MRSA IN WOUND. I&D PERFORMED ON 05/20/[address] BOWMAN. WOUND VAC IN PLACE. IV ANTIB RX ARE SCHEDULED. ON RA. A&O X4. FROM [facility]. 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 HE IS WORKING WITH PHYSICAL THERAPY. REGULAR DIET.
[2022-05-22 06:22] LABS: BASOPHILS ABSOLUTE AUTO 0.05 K/mm3 (0.00-0.23); BASOPHILS PERCENT AUTO 1 % (0-2); EOSINOPHILS ABSOLUTE AUTO 0.12 K/mm3 (0.00-0.68); EOSINOPHILS PERCENT AUTO 2 % (0-6); Hematocrit 29.5 % (37.0-53.0); Hemoglobin 9.1 g/dL (13.5-17.5); IMMATURE GRAN ABSOLUTE AUTO 0.04 K/mm3 (0.00-0.10); IMMATURE GRAN PERCENT AUTO 1 % (0-1); LYMPHOCYTES ABSOLUTE AUTO 2.53 K/mm3 (0.84-5.20); LYMPHOCYTES PERCENT AUTO 44 % (21-46); MONOCYTES ABSOLUTE AUTO 0.41 K/mm3 (0.16-1.47); MONOCYTES PERCENT AUTO 7 % (4-13); Mean Corpuscular HGB 27.5 pg (26.0-34.0); Mean Corpuscular HGB Conc 30.8 g/dL (31.5-36.5); Mean Corpuscular Volume 89 fL (80-100); Mean Platelet Volume 9.2 fL (9.1-12.4); NEUTROPHILS ABSOLUTE AUTO 2.67 K/mm3 (1.96-9.15); NEUTROPHILS PERCENT AUTO 46 % (41-73); Platelet Count 268 K/mm3 (150-400); RDW Coefficient Variation 16.1 % (11.7-14.2); RDW Standard Deviation 52.9 fL (35.1-46.3); Red Blood Cell Count 3.31 M/mm3 (4.30-5.90); White Blood Cell Count 5.82 K/mm3 (4.00-11.30)
[2022-05-22 06:36] LABS: Bun/Creatinine Ratio 33.9 (12.0-20.0); Calcium, Blood 8.9 mg/dL (8.5-10.1); Creatinine, Blood 0.77 mg/dL (0.60-1.20); Potassium, Blood 4.2 mmol/L (3.5-5.5)
--- NOTE | 2022-05-22 08:00 | NUR ---
Patient consent statement. Patient consented this 2nd year [facility] [place] to participate in his care today, 05/22/2022. CT
--- NOTE | 2022-05-22 11:54 | NUR ---
NO DVT PROPHYLAXIS VERBALLY SPOKE WITH DR. PRIYANKA KILPATRICK NO DVT PROPHYLAXIS. NO NEW ORDER.
[2022-05-22 13:53] LABS: International Normalized Ratio 1.12; Prothrombin Time Results 11.7 Sec (9.7-11.5)
[2022-05-22 15:59] LABS: Vancomycin, Trough 15.1 ug/mL (5.0-10.0)
--- NOTE | 2022-05-22 17:30 | NUR ---
Shift Summary A/Ox4, pleasant/cooperative. Worked with PT, tolerated well. Denies pain. Eating well. Repositions self in bed. Wound vac with continuous suction to R BKA, dressing intact.
--- NOTE | 2022-05-23 04:30 | NUR ---
SHIFT SUMMARY ADMITTED FOR POST OP INFECTION OF RIGHT BKA STUMP. DNR CODE. WOUND VAC IN PLACE. DR. BOWMAN IS CONSULT. I&D PERFORMED ON 05/20/22. HE IS HOPEFUL FOR DC TO REHAB. HE IS WORKING WITH PHYSICAL AND OCCUPATIONAL THERAPIES. ON RA. A&O X4. VANCO IS SCHEDULED, PHARMACY IS MANAGING VANCO. HE IS A 1 ASSIST STAND/PIVOT TO BSC OR CHAIR. HE IS FROM [facility]. HX OF PAD, AFIB. REMOTE DVT/PE IN 1991, NONCOMPLIANT WITH WARFARIN PRESCRIPTION. ANTICOAGULANTS HELD DUE TO STUMP BLEEDING. CONTACT PRECAUTIONS FOR MRSA IN WOUND.
[2022-05-23 05:23] LABS: International Normalized Ratio 1.09; Prothrombin Time Results 11.4 Sec (9.7-11.5)
--- NOTE | 2022-05-23 07:41 | NUR ---
CBC c DIFF AND BMP T.O. FROM DR. MATHEW FOR ABOVE ORDERS.
[2022-05-23 07:55] LABS: BASOPHILS ABSOLUTE AUTO 0.06 K/mm3 (0.00-0.23); BASOPHILS PERCENT AUTO 1 % (0-2); EOSINOPHILS ABSOLUTE AUTO 0.15 K/mm3 (0.00-0.68); EOSINOPHILS PERCENT AUTO 3 % (0-6); Hematocrit 31.5 % (37.0-53.0); Hemoglobin 9.7 g/dL (13.5-17.5); IMMATURE GRAN ABSOLUTE AUTO 0.04 K/mm3 (0.00-0.10); IMMATURE GRAN PERCENT AUTO 1 % (0-1); LYMPHOCYTES ABSOLUTE AUTO 2.44 K/mm3 (0.84-5.20); LYMPHOCYTES PERCENT AUTO 47 % (21-46); MONOCYTES PERCENT AUTO 10 % (4-13); Mean Corpuscular HGB 27.7 pg (26.0-34.0); Mean Corpuscular HGB Conc 30.8 g/dL (31.5-36.5); Mean Corpuscular Volume 90 fL (80-100); Mean Platelet Volume 9.3 fL (9.1-12.4); NEUTROPHILS ABSOLUTE AUTO 2.02 K/mm3 (1.96-9.15); NEUTROPHILS PERCENT AUTO 39 % (41-73); Platelet Count 284 K/mm3 (150-400); RDW Coefficient Variation 16.6 % (11.7-14.2); RDW Standard Deviation 54.4 fL (35.1-46.3); White Blood Cell Count 5.21 K/mm3 (4.00-11.30)
[2022-05-23 08:47] LABS: Bun/Creatinine Ratio 33.2 (12.0-20.0); Calcium, Blood 8.9 mg/dL (8.5-10.1); Creatinine, Blood 0.69 mg/dL (0.60-1.20); Potassium, Blood 4.6 mmol/L (3.5-5.5)
--- NOTE | 2022-05-23 13:14 | NUR ---
WOUND CARE RLE WOUND VAC DRESSING CHANGED. ONE PICE BLACK FOAM REMOVED. WOUND CLEANSED WITH NS. ONE PIECE WHITE ANTIMICROBIAL GAUZE PLACED IN 2.5 CM TUNNEL AT 9 O CLOCK. TWO PICES OF BLACK FOAM APPLIED. VAC SET TO CONTINUOUS 120 MMHG. PT TOLERATED WELL
[2022-05-23 15:29] LABS: SARS-Cov-2 (COVID-19) Antigen Negative (NEGATIVE)
[2022-05-23] MEDS ORDERED: VISBIOME 112.51 EACH PO (17:43)
[2022-05-23] MEDS ORDERED: SULTRIDS PO (17:44)
--- NOTE | 2022-05-23 18:19 | NUR ---
Discharge Summary D/C to [facility]. Report called to receiving nurse Delmy. Transport via w/c to facility. Med rec completed. Packet given to cdl b driver. Wound vac detached and closed. No acute pain. A/Ox4.
== END 2022-05-23 18:02 | disposition home or self-care (01) | DRG 464 ==
LOC: ER 08:37 → ERHOLD 15:20 → MEDS 15:20
PROVIDERS: Family Medicine; Hospitalist; Orthopaedic Surgery; Physician Assistant; ADMIT Internal Medicine
PROC: 0JBN0ZZ Excision of Right Lower Leg Subcutaneous Tissue and Fascia, Open Approach (ICD-10-PCS; principal; 2022-05-20 13:30)
DX: T87.43 Infection of amputation stump, right lower extremity (principal); L03.115 Cellulitis of right lower limb; I73.9 Peripheral vascular disease, unspecified; N40.0 Benign prostatic hyperplasia without lower urinary tract symptoms; B95.62 Methicillin resistant Staphylococcus aureus infection as the cause of diseases classified elsewhere; Z66 Do not resuscitate; I87.2 Venous insufficiency (chronic) (peripheral); I48.0 Paroxysmal atrial fibrillation; D50.9 Iron deficiency anemia, unspecified; D63.8 Anemia in other chronic diseases classified elsewhere; F12.10 Cannabis abuse, uncomplicated; I89.0 Lymphedema, not elsewhere classified; F10.11 Alcohol abuse, in remission; Z20.822 Contact with and (suspected) exposure to COVID-19; Z79.01 Long term (current) use of anticoagulants; Z86.711 Personal history of pulmonary embolism; Z86.718 Personal history of other venous thrombosis and embolism; Z85.828 Personal history of other malignant neoplasm of skin; Z98.890 Other specified postprocedural states; Z79.899 Other long term (current) drug therapy; Z98.49 Cataract extraction status, unspecified eye; Z91.14 Patient's other noncompliance with medication regimen; Y83.5 Amputation of limb(s) as the cause of abnormal reaction of the patient, or of later complication, without mention of misadventure at the time of the procedure
CPT/HCPCS: 0241U; 36415; 73590; 73701; 80048; 80053; 80202; 83605; 83880; 85025; 85610; 85651; 87040; 87070; 87075; 87077; 87147; 87186; 87205; 87426; 96365-59; 97110; 97162; 97530; 99285-25; A9270; C9803; J0696; J1100; J2370; J2405; J2704; J3010; J3370; J7050; J7120; Q9967

== ENCOUNTER → 2022-07-14 | Outpatient (CLI) | payer MEDICARE, OTHER ==
[~2022-07-14] MED LIST changes: +SULTRIDS PO; +VISBIOME 112.51 EACH PO
[2022-07-14 08:50] LABS: International Normalized Ratio 2.14; Prothrombin Time Results 21.4 Sec (9.7-11.5)
== END | disposition home or self-care (01) ==
LOC: LAB UVN 07:26 → EDSTATUS 16:07
PROVIDERS: Internal Medicine
DX: I48.0 Paroxysmal atrial fibrillation (principal)
CPT/HCPCS: 85610

== ENCOUNTER → 2022-07-21 | Outpatient (CLI) | payer MEDICARE, OTHER ==
[2022-07-21 11:47] LABS: International Normalized Ratio 2.34; Prothrombin Time Results 23.2 Sec (9.7-11.5)
== END | disposition home or self-care (01) ==
LOC: LAB UVN 10:32 → EDSTATUS 16:09
PROVIDERS: Internal Medicine
DX: Z79.01 Long term (current) use of anticoagulants (principal); Z51.81 Encounter for therapeutic drug level monitoring; I48.0 Paroxysmal atrial fibrillation
CPT/HCPCS: 85610

== ENCOUNTER → 2022-07-28 | Outpatient (CLI) | payer MEDICARE, OTHER ==
[2022-07-28 09:55] LABS: International Normalized Ratio 2.74; Prothrombin Time Results 26.9 Sec (9.7-11.5)
== END | disposition home or self-care (01) ==
LOC: LAB UVN 09:16 → EDSTATUS 16:10
PROVIDERS: Family Medicine
DX: Z79.01 Long term (current) use of anticoagulants (principal); Z51.81 Encounter for therapeutic drug level monitoring
CPT/HCPCS: 85610

== ENCOUNTER → 2022-08-04 | Outpatient (CLI) | payer MEDICARE, OTHER ==
[2022-08-04 09:17] LABS: International Normalized Ratio 3.1; Prothrombin Time Results 30.2 Sec (9.7-11.5)
== END | disposition home or self-care (01) ==
LOC: LAB UVN 07:15 → EDSTATUS 16:12
PROVIDERS: Family Medicine
DX: I48.0 Paroxysmal atrial fibrillation (principal)
CPT/HCPCS: 85610

== ENCOUNTER 2023-03-13 17:13 | Inpatient (IN) | payer MEDICARE, OTHER ==
[~2023-03-13] VITALS: Ht 175.3 cm; Wt 115.2 kg
[2023-03-13] MEDS ORDERED: LAMOTRIGINE25 M4 PO (17:40)
[2023-03-13] MEDS ORDERED: BISA10S PR (17:41)
[2023-03-13] MEDS ORDERED: Ativan1 MG PO (17:42)
[2023-03-13] MEDS ORDERED: OMEP20ER PO (17:42)
[2023-03-13] MEDS ORDERED: SENN187 PO (17:43)
[2023-03-13 18:56] LABS: BASOPHILS ABSOLUTE AUTO 0.04 K/mm3 (0.00-0.23); BASOPHILS PERCENT AUTO 1 % (0-2); EOSINOPHILS ABSOLUTE AUTO 0.07 K/mm3 (0.00-0.68); EOSINOPHILS PERCENT AUTO 2 % (0-6); Hematocrit 38.6 % (37.0-53.0); Hemoglobin 12.6 g/dL (13.5-17.5); IMMATURE GRAN ABSOLUTE AUTO 0.01 K/mm3 (0.00-0.10); IMMATURE GRAN PERCENT AUTO 0 % (0-1); LYMPHOCYTES ABSOLUTE AUTO 2.14 K/mm3 (0.84-5.20); LYMPHOCYTES PERCENT AUTO 46 % (21-46); MONOCYTES ABSOLUTE AUTO 0.72 K/mm3 (0.16-1.47); MONOCYTES PERCENT AUTO 16 % (4-13); Mean Corpuscular HGB 28.6 pg (26.0-34.0); Mean Corpuscular HGB Conc 32.6 g/dL (31.5-36.5); Mean Corpuscular Volume 88 fL (80-100); Mean Platelet Volume 10.1 fL (9.1-12.4); NEUTROPHILS ABSOLUTE AUTO 1.67 K/mm3 (1.96-9.15); NEUTROPHILS PERCENT AUTO 36 % (41-73); Platelet Count 188 K/mm3 (150-400); RDW Coefficient Variation 14.8 % (11.7-14.2); Red Blood Cell Count 4.41 M/mm3 (4.30-5.90); White Blood Cell Count 4.65 K/mm3 (4.00-11.30)
[2023-03-13 19:21] LABS: Alanine Aminotransfer (ALT/SGP 21 U/L (12-78); Albumin, Blood 3.4 g/dL (3.4-5.0); Albumin/Globulin Ratio 0.7 (0.8-1.8); Alk Phos 101 U/L (50-136); Anion Gap 4 mmol/L (6-16); Aspartate Aminotrans (AST/SGOT 20 U/L (12-37); Bilirubin, Total 0.5 mg/dL (0.1-1.0); Blood Urea Nitrogen 27 mg/dL (8-24); Bun/Creatinine Ratio 23.9 (12.0-20.0); CO2, Blood 33 mmol/L (21-32); Calcium, Blood 9.7 mg/dL (8.5-10.1); Chloride, Blood 104 mmol/L (98-108); Creatinine, Blood 1.13 mg/dL (0.60-1.20); Ethanol (Alcohol), Blood, Med <3 mg/dL; Glomerular Filtration Rate 64 (60-); Glucose, Blood 110 mg/dL (70-99); Potassium, Blood 3.8 mmol/L (3.5-5.5); Sodium, Blood 141 mmol/L (136-145); Total Protein, Blood 8.4 g/dL (6.4-8.2)
[2023-03-13 20:42] LABS: Source, Urine Clean Catch
[2023-03-13 20:47] LABS: Bilirubin, Urine Neg (Neg); Blood, Urine 1+ (Neg); Glucose Qualitative, Urine Neg (Neg); Ketones, Urine Neg (Neg); Leukocyte Esterase, Urine 3+ (Neg); Nitrite, Urine Neg (Neg); Protein, Urine Neg (Neg); Urobilinogen, Urine NORM (Normal)
[2023-03-13 20:55] LABS: Appearance, Urine Clear (Clear); Bacteria Few /hpf; Color, Urine Yellow (P-Yellow); Red Blood Cells, Urine 0-2 /hpf (0-2); Squamous Epithelial Cells Not Seen /hpf (Few); White Blood Cells, Urine 50-100 /hpf (0-5)
[2023-03-13 20:58] LABS: U Amphetamine Screen Not Detected; U Barbituate Screen Not Detected; U Benzodiazapine Screen Not Detected; U Buprenorphine Screen Not Detected; U Cannabinoids Screen Not Detected; U Cocaine Screen Not Detected; U Methadone Screen Not Detected; U Methamphetamine Screen Not Detected; U Opiates Screen Not Detected; U Oxycodone Screen Not Detected; U Phencyclidine Screen Not Detected; U Propoxyphene Screen Not Detected
[2023-03-13 23:16] VITALS: BP 97/67
[2023-03-13 23:46] LABS: International Normalized Ratio 1.21; Prothrombin Time Results 12.6 Sec (9.7-11.5)
[2023-03-14 03:01] VITALS: BP 143/69
[2023-03-14 04:36] LABS: BASOPHILS ABSOLUTE AUTO 0.05 K/mm3 (0.00-0.23); BASOPHILS PERCENT AUTO 1 % (0-2); EOSINOPHILS PERCENT AUTO 2 % (0-6); Hematocrit 33.2 % (37.0-53.0); Hemoglobin 10.6 g/dL (13.5-17.5); IMMATURE GRAN PERCENT AUTO 0 % (0-1); LYMPHOCYTES ABSOLUTE AUTO 1.73 K/mm3 (0.84-5.20); LYMPHOCYTES PERCENT AUTO 42 % (21-46); MONOCYTES PERCENT AUTO 17 % (4-13); Mean Corpuscular HGB 28.7 pg (26.0-34.0); Mean Corpuscular HGB Conc 31.9 g/dL (31.5-36.5); Mean Corpuscular Volume 90 fL (80-100); Mean Platelet Volume 10.5 fL (9.1-12.4); NEUTROPHILS ABSOLUTE AUTO 1.56 K/mm3 (1.96-9.15); NEUTROPHILS PERCENT AUTO 38 % (41-73); Platelet Count 165 K/mm3 (150-400); RDW Coefficient Variation 15.1 % (11.7-14.2); RDW Standard Deviation 49.4 fL (35.1-46.3); Red Blood Cell Count 3.69 M/mm3 (4.30-5.90); White Blood Cell Count 4.14 K/mm3 (4.00-11.30)
[2023-03-14 05:42] LABS: Albumin, Blood 2.7 g/dL (3.4-5.0); Albumin/Globulin Ratio 0.7 (0.8-1.8); Bilirubin, Total 0.4 mg/dL (0.1-1.0); Bun/Creatinine Ratio 24.1 (12.0-20.0); Calcium, Blood 8.7 mg/dL (8.5-10.1); Creatinine, Blood 1.08 mg/dL (0.60-1.20); Total Protein, Blood 6.7 g/dL (6.4-8.2)
--- NOTE | 2023-03-14 05:44 | NUR ---
ADMISSION DONE PT IS A/O AND VERY SHARP FOR HIS AGE OF 82, SHOWS NO SIGN OF PSYCHOSIS, VERY TALKATIVE WHICH I BELIEVE IS HIS BASELINE. VSS NO DISTRESS HAS NO C/O PAIN, AND IS A GOOD HISTORIAN OF HEALTH HISTORY. CALL LIGHT WITHIN REACH WILL CALL IF NEEDING ANYTHING. SWALLOW INTACT AND ATE DINNER WITH GOOD APITITE. PT NOW IN A DEEP SLEEP.
[2023-03-14 07:47] VITALS: BP 117/53
[2023-03-14 07:56] LABS: International Normalized Ratio 1.25
--- NOTE | 2023-03-14 16:16 | NUR ---
ASKS THIS RN TO CALL [facility] TO SEE IF PATIENT CAN RETURN TODAY. NO BEHAVIORS HAVE BEEN NOTED. HE HAS BEEN APPROPRIATE THROUGHOUT THE DAY SHIFT AND THROUGH THE PREVIOUS INFORMATION ASSURANCE ENGINEER. HE IS BEING TREATED FOR A UTI AND FOR DECREASED PT LEVEL. WONDERS IF HE IS NOT TAKING HIS COUMADEN HE HAS MADE COMMENTS TODAY ABOUT NURSING NOT NEEDING TO WATCH HIM TAKE HIS PILLS. [facility] CALLED AND RN SAYS SHE IS A TRAVELER AND THAT THE DNS IS ZARA LUNA [phone]. RN SAYS THAT ADAPT WAS CONSULTED ABOUT BYRON AND THAT HE HAS UNTREATED BIPOLAR AND FACILITY WANTS HIM ON A 72 HOUR HOLD FOR A PSYCHE HOLD. I EXPLAINED THAT HE WAS NOT ON A HOLD AND COULD NOT SPEAK TO THAT. SHE SAID UNLESS BYRON IS EVALUATED BY A PSYCHIATRIST AND HIS BEHAVIORS ARE TREATED HE WILL NOT BE ALLOWED BACK AT [facility] WHERE HE CURRENTLY LIVES. SAID SHE WILL ORDER A PSYCHE EVAL IF NEEDED SO HE CAN RETURN.
[2023-03-14 16:17] VITALS: BP 115/77
[2023-03-14 19:29] VITALS: BP 132/87
[2023-03-15 04:27] VITALS: BP 110/78
--- NOTE | 2023-03-15 04:47 | NUR ---
REPORT RECEIVED. A/O, AGAIN VERY BOMBASTIC TALK SOMETIMES INAPPROPRIATE BUT PT FOLLOWS COMMANDS AND WILL CALL IF NEEDING ASSISTANCE. PT IS VERY STRONG AND WAS BLE TO TRANSFER SELF FROM BED TO WHEEL CHAIR AND TO SHOWER WITH MINIMAL ASSISTANCE. PT TOOK SHOWER WASHED SELF AND HAD FRIENDS BRING NEW CLOTHS TO WEAR. PT ATE FOOD SALLIE BY FRIENDS AND IS NOW LAYING QUIETLY IN BED. 0430 PT ASSISTED TO BATHROOM HAD LARGE BM, AGAIN TRANSFERED VERY WELL AND IS NOW BACK IN BED.
[2023-03-15 07:26] VITALS: BP 121/76
[2023-03-15 12:34] LABS: International Normalized Ratio 1.18; Prothrombin Time Results 12.3 Sec (9.7-11.5)
--- NOTE | 2023-03-15 14:31 | NUR ---
ASSUMED CARE AND COMFORT OF THIS PAITENT AT 0700 THIS AM FROM MARCELA CROWLEY. PATIENT WAS ON PHONE IN HIS ROOM. SPEAKING IN EXTREME LOUD VOICE. ATTEMPT TO SHUT DOOR FOR OTHER PATEINTS TO CONTINUE RESTING MET WITH MUCH RESISTANCE FROM THIS PATIENT. PATIENT NOTED BY STACIE SHABAZZ TO HAVE TOBACCO PRODUCTS IN HIS ROOM. MISSY GUZMÁN RN WENT TO ROOM TO ASK BYRON TO LET HER PLACE TOBACCO PRODUCTS IN LOCKED BOX OUTSIDE OF ROOM. BYRON REFUSES AND BECOMES VERY BELLIGERANT THREATENING STAFF. PATIENT THEN PUTS HIMSELF INTO HIS WHEELCHAIR. REFUSES LAB DRAWS AND ALSO WANTS TO GO TO ER AND CHECK "EVERY ROOM AND QUESTION STAFF ABOUT HIS HAT HE THINKS HE LEFT IN A ROOM IN ER" THIS RN CALLS ER AND CHECKS FOR HAT. NO ONE HAS SEEN IT BUT THEY WILL KEEP AN EYE OUT. PATIENT STATES HE IS GOING THERE I EXPLAINED THAT IT IS A LOCKED UNIT AND WILL NOT BE ALLOWED TO GO THERE. PATIENT ATTEMPTS TO LEAVE UNIT AND GOES TO E[facility]AT[facility]. THIS RN AGAIN STOPS PATIENT AND REDIRECTS HIM. PATIENT GOES TO CHAIRS IN [place] OUTSIDE OF [facility] AND STARTS SPEAKING WITH ANOTHER BY[facility] FAMILY MEMBERS WITH 4 SMALL CHILDREN. THIS RN HEARS PATIENT MAKE SEXUAL COMMENTS TO CHILDREN AND SEE'S MOTHER OF CHILDREN BECOME UPSET AND START PULLING HER CHILDREN AWAY FROM HIM. I THEN NOTIFY LIBBY CROWLEY CHARGE AND SHE CALLS SECURITY. AFTER SECURITY GETS THERE I CALLED AND HE IS PLACED ON 2 MD HOLD. SITTER IS ORDERED AND PATIENT WAS TRANSFERRED WHEN ROOM IN BACK BOLDEN BECAME AVAILABLE.
[2023-03-15 15:15] VITALS: BP 127/66
--- NOTE | 2023-03-15 16:52 | NUR ---
SHIFT SUMMARY MR ANTONIO MOVED INTO ROOM 352 AT 1320 HOURS. SITTER AT BEDSIDE. REPORT FROM FABRICIO Vila RN. MR ANTONIO HAS BEEN CALM, VERY TALKATIVE, SOME INNAPROPRIATE CONVERSATION. HE SAID HE WANTED TO SMOKE MJ IN HIS CAR AND THAT HE WON'T BE STOPPED IF HE WANTS TO GO. THEN SAID HE WOULD STAY HERE. IT WAS REINFORCED THAT THIS IS A TOBACCO FREE CAMPUS WITH NO IGNITION SOURCES ALLOWED IN THE BUILDING. 1:1 SUPERVISION AT ALL TIMES. R BKA WITH SMALL OPEN AREA AT TIP - CLEAN MEPILEX APPLIED. BED LOW, CALL LIGHT IN REACH.
[2023-03-16 04:57] VITALS: BP 137/88
--- NOTE | 2023-03-16 05:56 | NUR ---
END OF SHIFT SUMMARY PT LYNNE. REFUSED LAB DRAW THIS MORNING. PT ON HIS PHONE TALKING TO SOMEONE, IN DENIAL THAT HIS RECENT LAB VALUE, PT WAS 12.3 ON 03/15/23. THIS AUTHOR ATTEMPTED TO SHOW THE [employer] REVIEW PAGE, BUT PT STATED THAT HE NEEDS A PAPER COPY PRINTED OFF TO BELIEVE IT IS TRUE. МАРИЯ FROM LAB WILL BE BACK AFTER BREAKFAST TO DRAW BLOOD. PT COMPLIANT WITH TAKING PRN MEDICATION LAST NIGHT. 2148: ZYPREXA GIVEN AND EFFECTIVE. PT HAD A 1:1 SITTER OVERNIGHT. PT SLEPT ROUGHLY FOR 4.5 HOURS. NO C/O PAIN OR DISCOMFORT. PT INDEPENDENTLY CHANGES POSITIONS IN BED. PT ABLE TO MAKE NEEDS KNOWN. CALL LIGHT WITHIN REACH, [facility].
[2023-03-16 07:40] VITALS: BP 102/49
--- NOTE | 2023-03-16 08:30 | NUR ---
ROOM MITIGATED FOR SAFETY. PT SLEEPING AT THIS TIME. ONE ON ONE SITTER OBSERVATION AT PT'S DOOR.
[2023-03-16 11:43] LABS: International Normalized Ratio 1.2; Prothrombin Time Results 12.5 Sec (9.7-11.5)
--- NOTE | 2023-03-16 15:13 | NUR ---
SHIFT SUMMARY PT RESTING QUIETLY AT START OF SHIFT, NOT WANTING TO BE WOKE OR BOTHERED UNTIL AFTER BREAKFAST. PT'S SON HERE THIS AM AND AFTERNOON. PT UP TO W/C AT BS TALKING WITH SON. CO-OP WITH LAB AND GREENHOUSE SUPERINTENDENT AFTER BREAKFAST. PT ABLE TO TX SELF TO W/C AND BACK TO BED; 1P SBA FOR SAFETY, BUT DID NOT NEED ASSIST. PT ABLE TO DRESS HIMSELF. USES URINAL SELF. 1P SBA TO BSC FOR BM. RESTING QUIETLY AGAIN AT THIS TIME, TAKING A NAP. CALL LT IN REACH. PT IS MEDICALLY STABLE, WAITING FOR BED AVAILABILITY.
[2023-03-16 15:29] VITALS: BP 147/88
[2023-03-16 20:40] VITALS: BP 112/68
--- NOTE | 2023-03-17 04:12 | NUR ---
SHIFT SUMMARY PATIENT IS ALERT AND ORIENTED X3. PATIENT HAS HAD NO ACUTE EVENTS THIS SHIFT. VITAL SIGNS REVIEWED. PATIENT HAS BEEN PLEASENT AND COOPERATIVE WITH CARE THIS SHIFT. PATIENT HAD A BOWEL MOVEMENT THIS EVENING. PATIENT HAS NOT COMPLAINED OF PAIN, NAUSEA, SOB OR VOMITTING THIS SHIFT. PATIENT HAS BEEN RESTING MOST OF SHIFT. BED IN LOCKED AND LOWEST POSITION. CALL LIGHT WITHIN REACH.
[2023-03-17 05:35] VITALS: BP 119/77
[2023-03-17 07:32] VITALS: BP 119/94
[2023-03-17 09:26] LABS: International Normalized Ratio 2.25; Prothrombin Time Results 22.6 Sec (9.7-11.5)
[2023-03-17 15:28] VITALS: BP 117/67
--- NOTE | 2023-03-17 15:40 | NUR ---
SHIFT SUMMARY PT RESTING QUIETLY AT START OF SHIFT. DOES NOT LIKE TO BE BOTHERED UNTIL AFTER BREAKFAST. AM MEDS GIVEN THEN. IV ABX STARTED; PT UNWILLING TO KEEP ARM STRAIGHT FOR 30 MINS WHILE [place] INFUSED, TAKING SEVERAL HOURS. PT CAN BE IRRITABLE AND LOUD. TALKS ON PHONE MOST OF DAY. TX'S SELF TO W/C AND BACK TO BED AT WILL. NO C/O. CALL LT IN REACH. ABLE TO MAKE NEEDS KNOWN. PT WAITING FOR D/C BACK TO [facility].
[2023-03-17 20:06] VITALS: BP 114/83
[2023-03-18 02:20] VITALS: BP 113/81
--- NOTE | 2023-03-18 04:18 | NUR ---
SHIFT SUMMARY PATIENT HAS HAD NO ACUTE EVENTS THIS SHIFT. VITAL SIGNS REVIEWED. PATIENT HAS BEEN IRRITABLE AND LOUD AT TIMES BUT OTHERWISE PATIENT HAS BEEN SLEEPING MOST OF SHIFT. PATIENT HAS NOT COMPLAINED OF PAIN, NAUSEA, SOB OR VOMITTING THIS SHIFT. BED IN LOCKED AND LOWEST POSITION. CALL LIGHT IN PLACE. WILL MONITOR UNTIL SHIFT CHANGE.
[2023-03-18 07:17] VITALS: BP 121/71
[2023-03-18 15:34] VITALS: BP 123/77
--- NOTE | 2023-03-18 18:28 | NUR ---
SUMMARY- PT A/O X3, IRRITABLE AT TIMES. COOPERATIVE MOST OF THE SHIFT. TOLERATING FOOD AND FLUIDS. USES URINAL TO VOID- DENIES ANY PAIN. PT GOT UP IN WHEELCHAIR FOR A FEW HOURS TODAY AND SOCIALIZED WITH STAFF IN [place], JOVIAL AND APPROPRIATE. DID NOT CALL FOR HELP TO GET UP LIKE RN HAD INSTRUCTED, STATED "I DON'T NEED HELP, ODVIOUSLY I CAN DO IT MYSELF"! AWAITING PLACEMENT FOR PATIENT. WILL REPORT TO NOC RN
[2023-03-18 19:15] VITALS: BP 115/61
[2023-03-19 05:00] VITALS: BP 118/71
--- NOTE | 2023-03-19 06:47 | NUR ---
MAGDA GRAHAM, PT DOING SELF CARES BEFORE BEDTIME. PT REQUESTED WARM WATER AND A WASH CLOTH IN THE DIANE SO HE COULD WASH UP. AND THEN THE EMISIS DIANE AND TOOTH PASTE SO HE COULD BRUSH TEETH. PT ABLE TO GET SELF UP OUT OF BED AND IN WC AND THEN BACK IN BED FROM . PT USING URINAL TO VOID.CALL LIGHT IN REACH. PT CALLED FOR OTHER NEEDS.
[2023-03-19 07:31] VITALS: BP 121/65
[2023-03-19 15:49] VITALS: BP 121/60
--- NOTE | 2023-03-19 17:56 | NUR ---
SHIFT SUMMARY Pt remains A&Ox3 this shift. Cooperative with staff. OOB independently to wc. VSS. Denies pain. Resp even nonlabored on RA. Voiding per urinal. No needs id or verbalized at this time. Will continue to monitor this shift.
[2023-03-19 19:58] VITALS: BP 124/69
--- NOTE | 2023-03-20 03:49 | NUR ---
SHIFT SUMMERY, PT RESTING IN BED, PT REQUESTED A WARM BLANKET AND SOME HOT TEA. PT COVRED WITH WARM BLANKET AND DRANK TEA. THEN PT WENT TO SLEEP. PT HAS BEEN RESTING WELL AND APPEARS TO BE COMFORTABLE. CALL LIGHT IN REACH.
[2023-03-20 05:33] VITALS: BP 115/61
[2023-03-20 07:37] VITALS: BP 147/82
[2023-03-20 13:14] LABS: SARS-Cov-2 (COVID-19) PCR, MMC NEGATIVE (NEGATIVE)
[2023-03-20] MEDS ORDERED: XARELTO20 MG PO (14:35)
--- NOTE | 2023-03-20 16:44 | NUR ---
SHIFT SUMMARY Pt remains A&Ox3 this shift. Cooperative with care. VSS. Resp even nonlabored on RA. Able to get oob to wc independently. Voids per urinal. Tolerating diet. Report called to [facility]. Pt transfer to rehab via van with all belongings.
== END 2023-03-20 16:47 | DRG 884 ==
LOC: ER 17:13 → MEDS 17:14 → ENPENDDIS 03-20 13:15 → MEDS 03-20 16:47
PROVIDERS: Internal Medicine; Student in an Organized Health Care Education/Training Program; ADMIT Internal Medicine
DX: F03.911 Unspecified dementia, unspecified severity, with agitation (principal); G93.40 Encephalopathy, unspecified; F17.220 Nicotine dependence, chewing tobacco, uncomplicated; N40.0 Benign prostatic hyperplasia without lower urinary tract symptoms; I89.0 Lymphedema, not elsewhere classified; D63.8 Anemia in other chronic diseases classified elsewhere; I48.0 Paroxysmal atrial fibrillation; I73.9 Peripheral vascular disease, unspecified; Z79.01 Long term (current) use of anticoagulants; Z86.718 Personal history of other venous thrombosis and embolism; Z86.711 Personal history of pulmonary embolism; Z89.511 Acquired absence of right leg below knee; Z28.21 Immunization not carried out because of patient refusal; Z96.651 Presence of right artificial knee joint; Z78.1 Physical restraint status
CPT/HCPCS: 36415; 70450; 80053; 81001; 85025; 85610; 87086; 93005; 93010; 96374; 99285-25; A9270; J0696; J1650; J7030; J7050; U0002

== ENCOUNTER 2023-06-13 09:44 | Emergency (ER) | payer MEDICARE, OTHER ==
[~2023-06-13] VITALS: Ht 175.3 cm; Wt 104.3 kg
[~2023-06-13 09:44] MED LIST changes: +Ativan1 MG PO; +BISA10S PR; +LAMOTRIGINE25 M4 PO; +OMEP20ER PO; +SENN187 PO
[2023-06-13 09:47] VITALS: BP 139/84
[2023-06-13] MEDS ORDERED: Voltaren100 GM TOP (10:29)
== END 2023-06-13 11:15 | disposition home or self-care (01) ==
LOC: ER 09:44
DX: M19.90 Unspecified osteoarthritis, unspecified site (principal); Z91.81 History of falling; M86.9 Osteomyelitis, unspecified; Z89.511 Acquired absence of right leg below knee; N40.0 Benign prostatic hyperplasia without lower urinary tract symptoms; I73.9 Peripheral vascular disease, unspecified; I48.0 Paroxysmal atrial fibrillation; Z79.01 Long term (current) use of anticoagulants; Z79.899 Other long term (current) drug therapy; W06.XXXA Fall from bed, initial encounter
CPT/HCPCS: 73070; 73110; 99283-25

== ENCOUNTER 2024-05-05 00:50 | Emergency (ER) | payer MEDICARE, OTHER ==
[~2024-05-05] VITALS: Ht 175.3 cm; Wt 102.1 kg
[~2024-05-05 00:50] MED LIST changes: +Voltaren100 GM TOP
[2024-05-05] MEDS ORDERED: ALLOPURINOL100 M1 PO (01:23)
[2024-05-05] MEDS ORDERED: METOPROLOL SUCC25 MG PO (01:24)
[2024-05-05] MEDS ORDERED: OLANZAPINE1024 PO (01:24)
[2024-05-05 01:30] VITALS: BP 112/72
== END 2024-05-05 02:51 | disposition home or self-care (01) ==
LOC: ER 00:50
DX: L76.22 Postprocedural hemorrhage of skin and subcutaneous tissue following other procedure (principal); Z79.01 Long term (current) use of anticoagulants; Z79.899 Other long term (current) drug therapy
CPT/HCPCS: 99283

== ENCOUNTER 2024-06-12 16:16 | Inpatient (IN) | payer MEDICARE, OTHER ==
[~2024-06-12] VITALS: Ht 175.3 cm; Wt 71.5 kg
[~2024-06-12 16:16] MED LIST changes: +ALLOPURINOL100 M1 PO; +METOPROLOL SUCC25 MG PO; +OLANZAPINE1024 PO
[2024-06-12 17:06] LABS: BASOPHILS ABSOLUTE AUTO 0.02 K/mm3 (0.00-0.23); BASOPHILS PERCENT AUTO 0 % (0-2); EOSINOPHILS ABSOLUTE AUTO 0.02 K/mm3 (0.00-0.68); EOSINOPHILS PERCENT AUTO 0 % (0-6); Hematocrit 33.7 % (37.0-53.0); Hemoglobin 10.8 g/dL (13.5-17.5); IMMATURE GRAN ABSOLUTE AUTO 0.07 K/mm3 (0.00-0.10); IMMATURE GRAN PERCENT AUTO 1 % (0-1); LYMPHOCYTES ABSOLUTE AUTO 1.41 K/mm3 (0.84-5.20); LYMPHOCYTES PERCENT AUTO 15 % (21-46); MONOCYTES ABSOLUTE AUTO 2.71 K/mm3 (0.16-1.47); MONOCYTES PERCENT AUTO 28 % (4-13); Mean Corpuscular HGB 28.5 pg (26.0-34.0); Mean Corpuscular Volume 89 fL (80-100); Mean Platelet Volume 11.4 fL (9.1-12.4); NEUTROPHILS ABSOLUTE AUTO 5.51 K/mm3 (1.96-9.15); NEUTROPHILS PERCENT AUTO 57 % (41-73); Platelet Count 535 K/mm3 (150-400); RDW Coefficient Variation 18.6 % (11.7-14.2); RDW Standard Deviation 60.1 fL (35.1-46.3); Red Blood Cell Count 3.79 M/mm3 (4.30-5.90); White Blood Cell Count 9.74 K/mm3 (4.00-11.30)
[2024-06-12 17:16] LABS: Creatinine, Blood 0.78 mg/dL (0.60-1.20); Potassium, Blood 4.4 mmol/L (3.5-5.5)
[2024-06-12 17:17] LABS: Albumin, Blood 2.9 g/dL (3.4-5.0); Albumin/Globulin Ratio 0.6 (0.8-1.8); Bilirubin, Total 0.8 mg/dL (0.1-1.0); Bun/Creatinine Ratio 29.6 (12.0-20.0); Calcium, Blood 9.8 mg/dL (8.5-10.1); Globulin, Blood 4.9 g/dL (2.2-4.0); Total Protein, Blood 7.8 g/dL (6.4-8.2)
[2024-06-12] MEDS ORDERED: Piperacillin/Tazobactam Sod 3.375 GM in NS 100 ML IV ONE (17:45)
[2024-06-12] MEDS ORDERED: Vancomycin HCL 2,000 MG in NS 520 ML IV ONE (17:45)
[2024-06-12 18:55] LABS: International Normalized Ratio 1.21; Prothrombin Time Results 12.8 Sec (9.7-11.5)
[2024-06-12] MEDS ORDERED: FentaNYL Citrate 50 MCG/ML 2 ML Injection IV PRN (19:20)
[2024-06-12] MEDS ORDERED: Ondansetron HCl 2 MG / ML 2ML Vial IV PRN (19:25)
[2024-06-12] MEDS ORDERED: FLU VACC TS2024-25(6MOS UP)/PF 45 MCG/0.5 ML SYRINGE IM ONE (19:25)
[2024-06-12] MEDS ORDERED: Dose Adjust by Pharmacy XX STA (19:43)
[2024-06-12] MEDS ORDERED: NS 1,000 ML IV SCH (20:00)
[2024-06-12] MEDS ORDERED: Heparin Sodium,Porcine/0.5 NS 500 ML IV SCH (20:00)
[2024-06-12 21:09] VITALS: BP 127/70
[2024-06-12] MEDS ORDERED: XARELTO20 M1 PO (21:42)
[2024-06-12] MEDS ORDERED: FUROSEMIDE20 MG PO (21:42)
[2024-06-12] MEDS ORDERED: Potassium Chlo20 ME1 PO (21:42)
[2024-06-13] MEDS ORDERED: Piperacillin/Tazobactam Sod 4.5 GM in NS 100 ML IV SCH
--- NOTE | 2024-06-13 05:16 | NUR ---
NOC SUMMARY- PT ARRIVED TO ROOM IN NO DISTRESS. PT HAS BEEN RESTING COMFORTABLY. PT HAS BEEN NPO SINCE AL. PT HEPARIN IS RUNNING. PT DENIES ANY PAIN. NO TELE EVENTS REPORTED. PT CURRENTLY SLEEPING IN NO DISTRESS. CALL LIGHT IN REACH.
[2024-06-13 05:54] VITALS: BP 139/72
[2024-06-13 06:19] LABS: BASOPHILS ABSOLUTE AUTO 0.02 K/mm3 (0.00-0.23); BASOPHILS PERCENT AUTO 0 % (0-2); EOSINOPHILS ABSOLUTE AUTO 0.02 K/mm3 (0.00-0.68); EOSINOPHILS PERCENT AUTO 0 % (0-6); Hematocrit 28.7 % (37.0-53.0); Hemoglobin 9.4 g/dL (13.5-17.5); IMMATURE GRAN ABSOLUTE AUTO 0.05 K/mm3 (0.00-0.10); IMMATURE GRAN PERCENT AUTO 1 % (0-1); LYMPHOCYTES ABSOLUTE AUTO 1.02 K/mm3 (0.84-5.20); LYMPHOCYTES PERCENT AUTO 16 % (21-46); MONOCYTES PERCENT AUTO 22 % (4-13); Mean Corpuscular HGB 28.9 pg (26.0-34.0); Mean Corpuscular HGB Conc 32.8 g/dL (31.5-36.5); Mean Corpuscular Volume 88 fL (80-100); Mean Platelet Volume 11.3 fL (9.1-12.4); NEUTROPHILS ABSOLUTE AUTO 3.87 K/mm3 (1.96-9.15); NEUTROPHILS PERCENT AUTO 61 % (41-73); Platelet Count 501 K/mm3 (150-400); RDW Coefficient Variation 18.6 % (11.7-14.2); RDW Standard Deviation 60.5 fL (35.1-46.3); Red Blood Cell Count 3.25 M/mm3 (4.30-5.90); White Blood Cell Count 6.38 K/mm3 (4.00-11.30)
[2024-06-13 06:41] LABS: Albumin, Blood 2.3 g/dL (3.4-5.0); Albumin/Globulin Ratio 0.5 (0.8-1.8); Bilirubin, Total 0.7 mg/dL (0.1-1.0); Bun/Creatinine Ratio 22.8 (12.0-20.0); Calcium, Blood 9.1 mg/dL (8.5-10.1); Creatinine, Blood 0.96 mg/dL (0.60-1.20); Globulin, Blood 4.3 g/dL (2.2-4.0); Potassium, Blood 4.4 mmol/L (3.5-5.5); Total Protein, Blood 6.6 g/dL (6.4-8.2)
[2024-06-13 07:10] VITALS: BP 109/59
[2024-06-13] MEDS ORDERED: Heparin Sodium 5000 Units/ML 1ML MDV IV ONE (07:55)
[2024-06-13] MEDS ORDERED: Vancomycin HCL 750 MG in NS 250 ML IV SCH (08:30)
[2024-06-13] MEDS ORDERED: Furosemide 40 MG Tab PO SCH (09:00)
[2024-06-13] MEDS ORDERED: Potassium Chloride 20 MEQ TabCR PO SCH (09:00)
[2024-06-13] MEDS ORDERED: Omeprazole 20 MG CapCR PO SCH (09:00)
[2024-06-13] MEDS ORDERED: Allopurinol 100 MG Tab PO SCH (09:00)
[2024-06-13] MEDS ORDERED: Metoprolol Succinate 25 MG TABCR PO SCH (09:00)
[2024-06-13] MEDS ORDERED: OLANZapine 10 MG Tab PO SCH (09:00)
--- NOTE | 2024-06-13 11:31 | NUR ---
MORNING NOTE THIS RN ASSUMED CARE AT APPROX 0715. PATIENT [place] [facility] NEEDS EFFECTIVELY. ALERT AND ORIENTED X4. VSS. TELEMETRY SHOWING SINUS 60s PER FLAKEBOARD LINE TENDER. DENIES CHEST PAIN, PRESSURE. ON ROOM AIR, SATs >90%. RLE CT COMPLETED THIS MORNING. ABD PAD AND KERLEX DRESSING TO R STUMP - C/D/I. DX CHANGED THIS MORNING BY MD BOWMAN. PATIENT DENIES PAIN TO STUMP. PLAN FOR PROCEDURE THIS AFTERNOON, NPO SINCE MIDNIGHT. USES URINAL INDEPENDENTLY. DOES EXPERIENCE EPISODES OF URINARY INCONTINENCE - ATTENDS IN PLACE FOR MANAGEMENT. CALL LIGHT IN REACH.
--- NOTE | 2024-06-13 14:41 | NUR ---
UPDATE SURGERY RESCHEDULED FOR TOMORROW 06/14/24. PER MD BOWMAN, HEPARIN GTT TO BE STOPPED AT 0600. REGULAR DIET ORDERED, NPO AT MIDNIGHT.
[2024-06-13] MEDS ORDERED: Dose Adjust by Pharmacy XX STA (14:47)
[2024-06-13 15:01] VITALS: BP 114/66
--- NOTE | 2024-06-13 16:49 | NUR ---
SHIFT SUMMARY NO ACUTE CHANGES SINCE PREVIOUS NOTES. REMAINS ALERT AND ORIENTED X4. SLEPT THROUGHOUT DAY, EASILY AROUSABLE WITH VERBAL STIMULI. VSS. SBP 100s-110s. MAP >65. TELEMETRY SHOWING SINUS 60s-70s. NO EVENTS REPORTED BY SCHOOL COORDINATOR. HEPARIN GTT INFUSING PER PHARMACY (SEE [facility] AND CRITICAL CARE FLOWSHEET DOCUMENTATION). REMAINS ON ROOM AIR, SATs >90%. RR EVEN, UNLABORED. NPO AT MIDNIGHT FOR I&D OF R STUMP. KERLEX AND ACEWRAP DRESSING TO R STUMP C/D/I. DENIES PAIN. TOLERATING PO INTAKE. USES URINAL INDEPENDENTLY. ATTENDS IN PLACE FOR OCCASIONAL INCONTINENT EPISODES - CHANGING PRN TO KEEP C/D/I. CALL LIGHT IN REACH.
--- NOTE | 2024-06-13 19:21 | NUR ---
REPORT GIVEN TO MICHELET CROWLEY TO ASSUME CARE FOLLOWING TRANSFER
--- NOTE | 2024-06-13 19:30 | NUR ---
TRANSFER. PATIENT TRANSFERED FROM ROOM 208 TO MEDICICAL FLOOR ROOM 310. PATIENT ARRIVED VIA HOSPITAL BED AND TWO PERSON TRANSFER. PATIENT I A&OX4 AND HAS IV RUNNING. PATIENT ORIENTED TO ROOM. BED IS LOCKED WITH CALL LIGHT LIGHT IN REACH. THIS RN ASSUME CARE.
[2024-06-13 19:35] VITALS: BP 94/44
[2024-06-14] VITALS (14 sets, daily range): BP systolic 89–128; BP diastolic 45–67
[2024-06-14] MEDS ORDERED: Dose Adjust by Pharmacy XX STA (00:59)
[2024-06-14 07:13] LABS: BASOPHILS ABSOLUTE AUTO 0.02 K/mm3 (0.00-0.23); BASOPHILS PERCENT AUTO 1 % (0-2); EOSINOPHILS ABSOLUTE AUTO 0.06 K/mm3 (0.00-0.68); EOSINOPHILS PERCENT AUTO 2 % (0-6); Hemoglobin 8.9 g/dL (13.5-17.5); IMMATURE GRAN ABSOLUTE AUTO 0.02 K/mm3 (0.00-0.10); IMMATURE GRAN PERCENT AUTO 1 % (0-1); LYMPHOCYTES ABSOLUTE AUTO 1.48 K/mm3 (0.84-5.20); LYMPHOCYTES PERCENT AUTO 41 % (21-46); MONOCYTES ABSOLUTE AUTO 0.66 K/mm3 (0.16-1.47); MONOCYTES PERCENT AUTO 18 % (4-13); Mean Corpuscular HGB 28.4 pg (26.0-34.0); Mean Corpuscular HGB Conc 31.8 g/dL (31.5-36.5); Mean Corpuscular Volume 90 fL (80-100); Mean Platelet Volume 11.3 fL (9.1-12.4); NEUTROPHILS ABSOLUTE AUTO 1.38 K/mm3 (1.96-9.15); NEUTROPHILS PERCENT AUTO 38 % (41-73); Platelet Count 524 K/mm3 (150-400); RDW Coefficient Variation 18.8 % (11.7-14.2); RDW Standard Deviation 61.6 fL (35.1-46.3); Red Blood Cell Count 3.13 M/mm3 (4.30-5.90); White Blood Cell Count 3.62 K/mm3 (4.00-11.30)
[2024-06-14 07:17] LABS: Vancomycin, Trough 16.4 ug/mL (5.0-10.0)
[2024-06-14 07:20] LABS: Albumin, Blood 2.1 g/dL (3.4-5.0); Albumin/Globulin Ratio 0.5 (0.8-1.8); Bilirubin, Total 0.5 mg/dL (0.1-1.0); Bun/Creatinine Ratio 16.4 (12.0-20.0); Calcium, Blood 8.4 mg/dL (8.5-10.1); Creatinine, Blood 0.98 mg/dL (0.60-1.20); Globulin, Blood 4.3 g/dL (2.2-4.0); Potassium, Blood 4.2 mmol/L (3.5-5.5); Total Protein, Blood 6.4 g/dL (6.4-8.2)
--- NOTE | 2024-06-14 08:08 | NUR ---
SHIFT SUMMARY. PATIENT IS A&OX4. CALLS APPROPRIATELY AND IS ABLE TO MAKE HIS NEEDS KNOWN. PATIENT HAD SNACK THIS SHIFT PRIOR TO MIDNIGHT-PATIENT HAS BEEN NPO SINCE MIDNIGHT AND HEPARIN DRIP STOPPED AT 0600 FOR I&D TO BE COMPLETED TODAY 06/14/24. PATIENT IS PLEASANT AND COOPERATIVE WITH CARE. NO ACUTE CHANGES NOTED. BED IS LOCKED IN THE LOWEST POSITION [facility] CALL LIGHT IN REACH. REPORT GIVEN TO DAYSHIFT NURSE.
[2024-06-14] MEDS ORDERED: Lactated Ringer's 1,000 ML IV SCH (11:25)
[2024-06-14] MEDS ORDERED: propofoL 20 ML IV ONE (13:56)
[2024-06-14] MEDS ORDERED: FentaNYL Citrate 50 MCG/ML 2 ML Injection ONE (13:56)
[2024-06-14] MEDS ORDERED: Lidocaine HCl 2% 20 ML MDV ONE (13:56)
[2024-06-14] MEDS ORDERED: Albuterol 2.5 MG/3 ML VIAL INH PRN (14:00)
[2024-06-14] MEDS ORDERED: Ondansetron HCl 2 MG / ML 2ML Vial IV PRN (14:00)
[2024-06-14] MEDS ORDERED: FentaNYL Citrate 50 MCG/ML 2 ML Injection IV PRN ×2 (14:00→14:05)
[2024-06-14] MEDS ORDERED: ePHEDrine Sulfate 50 MG/ML 1ML Injection IV PRN (14:00)
[2024-06-14] MEDS ORDERED: HYDROmorphone HCl/Pf 1MG SYR IV PRN ×2 (14:00→14:05)
[2024-06-14] MEDS ORDERED: HYDROmorphone HCl/Pf 1MG SYR ONE (14:59)
[2024-06-14] MEDS ORDERED: Dexamethasone Sod Phos 10 MG/ML 1ML VIAL ONE (15:07)
[2024-06-14] MEDS ORDERED: Tranexamic Acid 1,000 MG in NS 100 ML IV SCH (15:10)
[2024-06-14] MEDS ORDERED: Ondansetron HCl 2 MG / ML 2ML Vial ONE (15:42)
[2024-06-14] MEDS ORDERED: Tranexamic Acid 100 ML IV ONE (17:45)
--- NOTE | 2024-06-14 19:33 | NUR ---
PT A&OX4, UPPER MATTAPONI, VSS, RA, SR ON TELE. NPO IN MORNING PRIOR TO I&D OF R BKA THIS AFTERNOON. NEW WOUND VAC IN PLACE, NO OUTPUT, DENIES PAIN AT THIS TIME. HEPARIN GTT RESTARTED AT 15 UNITS/KG/HR PER PHARMACY RECCOMENDATION. CONT. OF URINE IN URINAL. CALLS APPROPRIATELY, ABLE TO MAKE NEED KNOWN, CALL LIGHT IN REACH, BED IN LOWEST POSITION.
[2024-06-15] VITALS (11 sets, daily range): BP systolic 84–103; BP diastolic 42–68
[2024-06-15 02:23] LABS: Hematocrit 24.1 % (37.0-53.0); Hemoglobin 7.8 g/dL (13.5-17.5); Mean Platelet Volume 10.9 fL (9.1-12.4); Platelet Count 571 K/mm3 (150-400)
[2024-06-15] MEDS ORDERED: Dose Adjust by Pharmacy XX STA ×2 (02:54→10:36)
--- NOTE | 2024-06-15 04:56 | NUR ---
SHIFT SUMMARY. PATIENT IS A&OX4. PATIENT REPORTS SOME SLIGHT PAIN TO RIGHT STUMP THAT HE DENIES ANY NEED FOR INTERVENTION-PATIENT HAD I&D DONE TO RIGHT STUMP ON 06/14/24 WITH WOUND VAC PLACED-SITE NOT ASSESSED DRESSING IS C/D/I-NO NOTED DRAINAGE FROM WOUND VAC. PATIENTS BLOOD PRESSURE REMAINS SOFT-PATIENT DENIES ANY DIZZINESS OR LIGHT HEADEDNESS-PATIENT REPORTS THAT HIS "BOTTOM NUMBER IS USUALLY 45 AND THE TOP IS 92". PATIENT RESTING OFF AND ON T/O SHIFT WITH RESPIRATIONS EQUAL AND UNLABORED. IV TO LEFT AC INFILTRATED AT BEGINNING OF SHIFT-NEW IV PLACED IN RIGHT WR. PATIENT CALLS APPROPRIATELY AND IS ABLE TO MAKE HIS NEEDS KNOWN. BED IS LOCKED IN THE LOWEST POSITION WITH CALL LIGHT IN REACH, CARE IS ONGOING.
[2024-06-15] MEDS ORDERED: NS 250 ML IV PRN (05:40)
[2024-06-15 11:11] LABS: BASOPHILS ABSOLUTE AUTO 0.02 K/mm3 (0.00-0.23); BASOPHILS PERCENT AUTO 1 % (0-2); EOSINOPHILS ABSOLUTE AUTO 0.02 K/mm3 (0.00-0.68); EOSINOPHILS PERCENT AUTO 1 % (0-6); Hematocrit 22.7 % (37.0-53.0); Hemoglobin 7.2 g/dL (13.5-17.5); IMMATURE GRAN ABSOLUTE AUTO 0.02 K/mm3 (0.00-0.10); IMMATURE GRAN PERCENT AUTO 1 % (0-1); LYMPHOCYTES ABSOLUTE AUTO 1.24 K/mm3 (0.84-5.20); LYMPHOCYTES PERCENT AUTO 33 % (21-46); MONOCYTES ABSOLUTE AUTO 0.56 K/mm3 (0.16-1.47); MONOCYTES PERCENT AUTO 15 % (4-13); Mean Corpuscular HGB 28.7 pg (26.0-34.0); Mean Corpuscular HGB Conc 31.7 g/dL (31.5-36.5); Mean Corpuscular Volume 90 fL (80-100); Mean Platelet Volume 11.1 fL (9.1-12.4); NEUTROPHILS ABSOLUTE AUTO 1.91 K/mm3 (1.96-9.15); NEUTROPHILS PERCENT AUTO 51 % (41-73); Platelet Count 519 K/mm3 (150-400); RDW Coefficient Variation 18.8 % (11.7-14.2); Red Blood Cell Count 2.51 M/mm3 (4.30-5.90); White Blood Cell Count 3.77 K/mm3 (4.00-11.30)
[2024-06-15] MEDS ORDERED: NS 500 ML IV SCH (12:50)
--- NOTE | 2024-06-15 13:14 | NUR ---
0945- SPOKE WITH HAMMAD STOVALL'D TO GIVE METOPROLOL DESPITE HELD FOR SBP 98. ALSO AWARE OF DROP IN H/H. RETREVING LABS TO F/U.
[2024-06-15 18:07] LABS: Hematocrit 24.5 % (37.0-53.0); Hemoglobin 7.9 g/dL (13.5-17.5); Mean Corpuscular HGB 28.9 pg (26.0-34.0); Mean Corpuscular HGB Conc 32.2 g/dL (31.5-36.5); Mean Corpuscular Volume 90 fL (80-100); Mean Platelet Volume 10.8 fL (9.1-12.4); Platelet Count 519 K/mm3 (150-400); RDW Standard Deviation 58.3 fL (35.1-46.3); Red Blood Cell Count 2.73 M/mm3 (4.30-5.90); White Blood Cell Count 3.58 K/mm3 (4.00-11.30)
[2024-06-15] MEDS ORDERED: Lactated Ringer's 500 ML IV SCH (18:50)
[2024-06-15] MEDS ORDERED: Lactated Ringer's 500 ML IV ONE (19:00)
--- NOTE | 2024-06-15 19:42 | NUR ---
SUMMARY- PT A/O X4, CURRENTLY ON BEDREST, USES CALL LIGHT APPROPRIATELY TO MAKE NEEDS KNOWN. TURNED Q2, SKIN INTACT. R STUMP WRAPPED IN GALE, CONNECTED TO WOUND VAC AT 120MM/HG CONT SUCTION. PT DENIES PAIN IN THE STUMP ANYTIME ASKED. PT TOERATING FOOD AND FLUID. PHYSICAL THERAPY WORKED WITH PT, SITTING AT THE EDGE OF THE BED, PT DECLINED TO DO MORE BECAUSE HE WASN'T GIVEN A WARNING FROM THERAPY BEFORE HAND. PT'S H/H LOW FROM YESTERDAY, HAD ONE UNIT PRBC'S. RECHECKED H/H AND BP, CALLED DR OH [phone] TO NOTIFY BLOOD PRESURE, HH REMAIN LOW. ORDER FOR LR 500ML BOLUS. REPORTED ALL TO NOC CARLINE TAFOYA TO TAKE OVER
[2024-06-15 22:26] LABS: Hematocrit 24.4 % (37.0-53.0); Hemoglobin 8.1 g/dL (13.5-17.5)
[2024-06-15] MEDS ORDERED: Lactated Ringer's 1,000 ML IV SCH (23:55)
[2024-06-16 00:36] VITALS: BP 104/72
--- NOTE | 2024-06-16 03:50 | NUR ---
SHIFT SUMMARY. PATIENT IS A&OX4. PATIENTS BLOOD PRESSURE SOFT THIS SHIFT-JESS ORDERED FOR LR AT 100ML/HR FOR SOFT BLOOD PRESSURE-PATIENT DENIES ANY DIZZINESS, LIGHT HEADEDNESS, AND REPORTS HIS BLOOD PRESSURE IS USUALLY LOW. PATIENT IS PLEASANT AND COOPERATIVE WITH CARE. BED IS LOCKED IN THE LOWEST POSITION WITH CALL LIGHT IN REACH, CARE IS ONGOING.
[2024-06-16 04:16] VITALS: BP 114/62
[2024-06-16 05:18] LABS: BASOPHILS ABSOLUTE AUTO 0.02 K/mm3 (0.00-0.23); BASOPHILS PERCENT AUTO 1 % (0-2); EOSINOPHILS ABSOLUTE AUTO 0.05 K/mm3 (0.00-0.68); EOSINOPHILS PERCENT AUTO 2 % (0-6); Hematocrit 25.6 % (37.0-53.0); Hemoglobin 8.2 g/dL (13.5-17.5); IMMATURE GRAN ABSOLUTE AUTO 0.02 K/mm3 (0.00-0.10); IMMATURE GRAN PERCENT AUTO 1 % (0-1); LYMPHOCYTES ABSOLUTE AUTO 1.36 K/mm3 (0.84-5.20); LYMPHOCYTES PERCENT AUTO 41 % (21-46); MONOCYTES ABSOLUTE AUTO 0.48 K/mm3 (0.16-1.47); MONOCYTES PERCENT AUTO 15 % (4-13); Mean Corpuscular HGB 29.3 pg (26.0-34.0); Mean Corpuscular Volume 91 fL (80-100); Mean Platelet Volume 11.2 fL (9.1-12.4); NEUTROPHILS ABSOLUTE AUTO 1.37 K/mm3 (1.96-9.15); NEUTROPHILS PERCENT AUTO 42 % (41-73); Platelet Count 533 K/mm3 (150-400); RDW Coefficient Variation 18.1 % (11.7-14.2); RDW Standard Deviation 61.1 fL (35.1-46.3)
[2024-06-16 05:49] LABS: Bun/Creatinine Ratio 15.2 (12.0-20.0); Calcium, Blood 8.8 mg/dL (8.5-10.1); Creatinine, Blood 0.99 mg/dL (0.60-1.20); Potassium, Blood 4.5 mmol/L (3.5-5.5)
[2024-06-16 07:16] VITALS: BP 101/67
[2024-06-16 12:13] VITALS: BP 114/64
[2024-06-16 15:13] LABS: BASOPHILS ABSOLUTE AUTO 0.01 K/mm3 (0.00-0.23); BASOPHILS PERCENT AUTO 0 % (0-2); EOSINOPHILS ABSOLUTE AUTO 0.07 K/mm3 (0.00-0.68); EOSINOPHILS PERCENT AUTO 2 % (0-6); Hematocrit 26.3 % (37.0-53.0); Hemoglobin 8.7 g/dL (13.5-17.5); IMMATURE GRAN ABSOLUTE AUTO 0.02 K/mm3 (0.00-0.10); IMMATURE GRAN PERCENT AUTO 1 % (0-1); LYMPHOCYTES ABSOLUTE AUTO 1.54 K/mm3 (0.84-5.20); LYMPHOCYTES PERCENT AUTO 40 % (21-46); MONOCYTES ABSOLUTE AUTO 0.58 K/mm3 (0.16-1.47); MONOCYTES PERCENT AUTO 15 % (4-13); Mean Corpuscular HGB 29.7 pg (26.0-34.0); Mean Corpuscular HGB Conc 33.1 g/dL (31.5-36.5); Mean Corpuscular Volume 90 fL (80-100); NEUTROPHILS ABSOLUTE AUTO 1.65 K/mm3 (1.96-9.15); NEUTROPHILS PERCENT AUTO 43 % (41-73); Platelet Count 576 K/mm3 (150-400); RDW Coefficient Variation 18.2 % (11.7-14.2); RDW Standard Deviation 59.4 fL (35.1-46.3); Red Blood Cell Count 2.93 M/mm3 (4.30-5.90); White Blood Cell Count 3.87 K/mm3 (4.00-11.30)
[2024-06-16 15:57] VITALS: BP 114/69
--- NOTE | 2024-06-16 17:23 | NUR ---
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 STUMP KEPT ELEVATED WITH PILLOWS. SET UP TO WOUND VAC 120MM/HG CONT SUCTION, SCANT EXTUDATE IN CANISTER. PT DENIES PAIN WHEN ASKED. BUT AT TIMES WHEN MOVING PT CALLS OUT IN- BUT STATES HE REFUSES PAIN MEDS "I DONT BELIEVE IN PAIN MEDS". PT'S BP BETTER TODAY, CONT TO YOSI H/H, CONT TO RISE. PT WORKED WITH PT/OT TODAY, SEE NOTES. PT USES URINAL, HAD SOFT MED BM TODAY. PLAN FOR PT TO GO TO SNF WHEN MEDICALLY STABLE IN A FEW DAYS. WILL REPORT TO LYNDA CROWLEY
[2024-06-16 19:39] VITALS: BP 108/90
[2024-06-16 20:55] LABS: Hematocrit 28.8 % (37.0-53.0); Hemoglobin 9.4 g/dL (13.5-17.5)
[2024-06-17 00:22] VITALS: BP 92/71
[2024-06-17 00:28] VITALS: BP 98/53
[2024-06-17 03:50] VITALS: BP 89/52
[2024-06-17 07:19] VITALS: BP 107/71
[2024-06-17 08:01] LABS: BASOPHILS ABSOLUTE AUTO 0.02 K/mm3 (0.00-0.23); BASOPHILS PERCENT AUTO 1 % (0-2); EOSINOPHILS ABSOLUTE AUTO 0.09 K/mm3 (0.00-0.68); EOSINOPHILS PERCENT AUTO 2 % (0-6); Hematocrit 28.5 % (37.0-53.0); Hemoglobin 9.4 g/dL (13.5-17.5); IMMATURE GRAN ABSOLUTE AUTO 0.04 K/mm3 (0.00-0.10); IMMATURE GRAN PERCENT AUTO 1 % (0-1); LYMPHOCYTES ABSOLUTE AUTO 1.52 K/mm3 (0.84-5.20); LYMPHOCYTES PERCENT AUTO 37 % (21-46); MONOCYTES ABSOLUTE AUTO 0.69 K/mm3 (0.16-1.47); MONOCYTES PERCENT AUTO 17 % (4-13); Mean Corpuscular HGB 29.5 pg (26.0-34.0); Mean Corpuscular Volume 89 fL (80-100); Mean Platelet Volume 11.2 fL (9.1-12.4); NEUTROPHILS ABSOLUTE AUTO 1.81 K/mm3 (1.96-9.15); NEUTROPHILS PERCENT AUTO 43 % (41-73); Platelet Count 569 K/mm3 (150-400); RDW Coefficient Variation 17.9 % (11.7-14.2); Red Blood Cell Count 3.19 M/mm3 (4.30-5.90); White Blood Cell Count 4.17 K/mm3 (4.00-11.30)
[2024-06-17 08:35] LABS: Calcium, Blood 9.3 mg/dL (8.5-10.1); Creatinine, Blood 0.9 mg/dL (0.60-1.20); Potassium, Blood 3.9 mmol/L (3.5-5.5); Vancomycin, Trough 24.8 ug/mL (5.0-10.0)
[2024-06-17] MEDS ORDERED: Metoprolol Succinate 25 MG TABCR PO SCH (09:00)
[2024-06-17] MEDS ORDERED: Furosemide 20 MG Tab PO SCH (09:00)
--- NOTE | 2024-06-17 11:47 | NUR ---
WOUND VAC REMOVED WOUND VAC REMOVED FROM RIGHT LEG STUMP AND REDRESSED WITH WET TO DRY DRESSING PER CASE MANAGEMENT ANDCHARGE NURSE REQUEST, TO MAKE READY FOR DC. PHOTOS WERE TAKEN OF THE WOUND. PT TOLERATED WELL
[2024-06-17] MEDS ORDERED: SULFAMETHOXAZO1 EAC1 PO (11:51)
--- NOTE | 2024-06-17 12:45 | NUR ---
DISCHARGE NOTE PATIENT A/OX4, ABLE TO MAKE NEEDS KNOWN. PLEASANT AND COOPERATIVE WITH CARE. POWERGLIDE REMOVED PRIOR TO DISCHARGE AND WOUND VAC TO RIGHT BKA REMOVED AND WET TO DRY DRESSING APPPLIED. REPORT CALLED TO SW[facility]I AT [facility]. PATIENT LEFT WITH ALL BELONGINGS IN HAND. TRANSFERRED TO WHEELCHAIR INDEPENDENNTLY WITH STAND BY ASSISTANCE. NO OTHER CONCERNS.
[2024-06-17] MEDS ORDERED: Vancomycin HCL 1,000 MG in NS 250 ML IV SCH (16:00)
== END 2024-06-17 12:41 | DRG 493 ==
LOC: ER 16:16 → ERHOLD 19:14 → MEDS 19:14 → SURS 19:14 → ERHOLD 20:30 → SURS 20:37 → MEDS 06-13 19:30 → ENPENDDIS 06-17 11:45 → MEDS 06-17 12:41
PROVIDERS: Family Medicine; Orthopaedic Surgery; Student in an Organized Health Care Education/Training Program; ADMIT Internal Medicine
PROC: 0QBG0ZZ Excision of Right Tibia, Open Approach (ICD-10-PCS; principal; 2024-06-14 12:00)
PROC: 30233N1 Transfusion of Nonautologous Red Blood Cells into Peripheral Vein, Percutaneous Approach (ICD-10-PCS; 2024-06-15)
DX: T87.43 Infection of amputation stump, right lower extremity (principal); L03.115 Cellulitis of right lower limb; N40.0 Benign prostatic hyperplasia without lower urinary tract symptoms; D63.8 Anemia in other chronic diseases classified elsewhere; F12.10 Cannabis abuse, uncomplicated; I73.9 Peripheral vascular disease, unspecified; I48.0 Paroxysmal atrial fibrillation; I89.0 Lymphedema, not elsewhere classified; B95.62 Methicillin resistant Staphylococcus aureus infection as the cause of diseases classified elsewhere; D64.89 Other specified anemias; Z86.711 Personal history of pulmonary embolism; Z86.73 Personal history of transient ischemic attack (TIA), and cerebral infarction without residual deficits; Z85.828 Personal history of other malignant neoplasm of skin; Z79.899 Other long term (current) drug therapy; Z79.01 Long term (current) use of anticoagulants; Z89.511 Acquired absence of right leg below knee; Z28.21 Immunization not carried out because of patient refusal
CPT/HCPCS: 36415; 36430; 73590; 73701; 80048; 80053; 80202; 83880; 85014; 85018; 85025; 85027; 85049; 85610; 85651; 85730; 86850; 86900; 86901; 86923; 87070; 87071; 87075; 87077; 87147; 87186; 87205; 93005; 93010; 96365; 96368; 97110; 97162; 97165; 97530; 99284-25; A9270; C1751; J1100; J1171; J1644; J2405; J2543; J2704; J3010; J3370; J7030; J7040; J7050; J7120; P9016; Q9967